=== PATIENT | female | born 2000 | race Caucasian/White ===

== ENCOUNTER → 2018-05-26 09:48 | Outpatient (CLI) | payer OTHER, SELFPAY | PROVIDERS: Family Provider Family Medicine; PCP Family Medicine; Visit Provider Physician Assistant | DX: L03.012 Cellulitis of left finger (principal) | CPT/HCPCS: 87070; 87077; 87147; 87186; 87205 ==

== ENCOUNTER 2020-01-30 20:48 | Emergency (ER) | payer OTHER, SELFPAY ==
[2020-01-30 21:00] VITALS: BP 128/76; PULSE 106; RESP 15; TEMP 36.7; O2SAT 97; BMI 20.1
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
[2020-01-30] MEDS: BACITRACIN OINT 0.9 GM PCKT 1 APPLIC TOP (22:41)
[2020-01-30 22:46] VITALS: BP 114/72; PULSE 103; RESP 14; O2SAT 99
== END 2020-01-30 22:48 | disposition home or self-care (01) ==
PROVIDERS: Emergency Provider Emergency Medicine; Family Provider Family Medicine; PCP Family Medicine
DX: S60.511A Abrasion of right hand, initial encounter (principal); T23.261A Burn of second degree of back of right hand, initial encounter; V89.2XXA Person injured in unspecified motor-vehicle accident, traffic, initial encounter
CPT/HCPCS: 73130; 99282; 99283

== ENCOUNTER → 2020-04-21 11:38 | Outpatient (CLI) | payer OTHER, MEDICAID, SELFPAY ==
[2020-04-21 12:10] LABS: COVID19 -Nasal RAPID Negative (Negative)
== END ==
PROVIDERS: Family Provider Family Medicine; PCP Family Medicine; Visit Provider Family Medicine
DX: Z11.59 Encounter for screening for other viral diseases (principal); R05 Cough; R09.81 Nasal congestion; R09.89 Other specified symptoms and signs involving the circulatory and respiratory systems
CPT/HCPCS: 87635

== ENCOUNTER → 2020-09-24 16:50 | Outpatient (CLI) | payer OTHER, MEDICAID, SELFPAY ==
[2020-09-24] MEDS: COVID-19 VACC #1, MRNA(MOD) 100 MCG/0.5 ML VIAL IM (16:58)
== END ==
PROVIDERS: Family Provider Family Medicine; PCP Family Medicine; Visit Provider Internal Medicine
DX: Z23 Encounter for immunization (principal)
CPT/HCPCS: 0011A; 91301

== ENCOUNTER → 2020-10-22 12:38 | Outpatient (CLI) | payer OTHER, MEDICAID, SELFPAY ==
[2020-10-22] MEDS: COVID-19 VACC #2, MRNA(MOD) 100 MCG/0.5 ML VIAL IM (12:46)
--- NOTE | 2020-10-22 13:14 | PC.NURSE ---
pt reported feeling faint post injection; pale, diaphoretic, assisted to reclining chair, bp 87/40; give cool coth to forehead, feeling better, bp 95/62 post 20 min. minimal food intake today. given juice and crackers. d/c ambuatory post 30 min
== END ==
PROVIDERS: Family Provider Family Medicine; PCP Family Medicine; Visit Provider Internal Medicine
DX: Z23 Encounter for immunization (principal)
CPT/HCPCS: 0012A; 91301

== ENCOUNTER → 2021-11-03 16:52 | Outpatient (CLI) | payer OTHER, MEDICAID, SELFPAY ==
[2021-11-03 17:57] LABS: Appearance Urine UA CLEAR; Bilirubin Urine UA NEGATIVE (NEGATIVE); Color Urine UA YELLOW; Glucose Urine UA NEGATIVE (Negative); Ketones Urine UA NEGATIVE (NEGATIVE); Leukocyte Esterase Urine UA NEGATIVE (NEGATIVE); Nitrite Urine UA NEGATIVE (Negative); Occult Blood Urine UA NEGATIVE (Negative); Protein Urine UA NEGATIVE (Negative); Specific Gravity Urine UA <=1.005 (1.000-1.035); Urobilinogen Urine UA 0.2 E.U./dL (0.2)
[2021-11-03 18:04] LABS: pH Urine UA 6.5 (4.5-8.0)
[2021-11-03 18:06] LABS: Add Manual Diff / Slide Review NO; Basophils Absolute Auto 0 /uL (0-100); Basophils Percent Auto 0.3 % (0-2); Eosinophils Absolute Auto 100 /uL (0-450); Eosinophils Percent Auto 0.7 % (2-4); Hematocrit 29.2 % (36-46); Hemoglobin 10.4 g/dL (12.0-16.0); Lymphocytes Absolute Auto 2300 /uL (1100-4500); Lymphocytes Percent Auto 27.1 % (25-40); Mean Corpuscular HGB Conc 35.8 % (30-36); Mean Corpuscular Hemoglobin 33.3 PG (26-34); Mean Corpuscular Volume 92.9 fL (80-100); Monocytes Absolute Auto 600 /uL (0-900); Monocytes Percent Auto 6.6 % (3-14); Neutrophils Absolute Auto 5600 /uL (1500-7000); Neutrophils Percent Auto 65.3 % (50-75); Platelet Count 273 X10^3/uL (150-400); Red Blood Cell Count 3.14 X10^6/uL (4.0-5.2); White Blood Cell Count 8.6 X10^3/uL (4.5-11.0)
[2021-11-04 07:39] LABS: Varicella IgG Antibody <135 index (Immune >165)
[2021-11-04 08:24] LABS: RPR Screen Non Reactive (Non Reactive)
[2021-11-04 16:16] LABS: Hepatitis B Surface Antigen NEGATIVE s/c (NEGATIVE); Rubella Antibody IgG 22.5 IU/mL (>15)
[2021-11-04 16:39] LABS: HIV 1 & 2 Ab/Ag 4th Gen Combo NEGATIVE (NEGATIVE); Hep C Virus Ab w/Reflex Quant NEGATIVE s/c (NEGATIVE)
== END ==
PROVIDERS: Family Provider Family Medicine; PCP Family Medicine; Referring Provider Obstetrics & Gynecology; Visit Provider Obstetrics & Gynecology
DX: Z34.82 Encounter for supervision of other normal pregnancy, second trimester (principal); Z3A.17 17 weeks gestation of pregnancy
CPT/HCPCS: 36415; 80055; 81003; 86787; 86803; 86850; 86900; 86901; 87086; 87389

== ENCOUNTER → 2021-11-15 11:00 | Outpatient (CLI) | payer OTHER, MEDICAID, SELFPAY ==
[2021-11-17 20:06] LABS: AFP, Serum 69.1 ng/mL (.); Estriol, Free 1.03 ng/mL (.); Inhibin A, Dimeric 218.15 pg/mL (.); Inhibin A, MoM 1.16 (.); Maternal Ethnicity Caucasian (.); Maternal Weight 121 lbs (.); Number of Fetuses No (.); OSBR Risk 1 IN 8106 (.); Results Report (.); Test Results *Screen Negative* (.); hCG, MoM 0.64 (.); hCG, Serum 20316 mIU/mL (.)
== END ==
PROVIDERS: Family Provider Family Medicine; PCP Family Medicine; Referring Provider Obstetrics & Gynecology; Visit Provider Obstetrics & Gynecology
DX: Z34.80 Encounter for supervision of other normal pregnancy, unspecified trimester (principal); Z3A.19 19 weeks gestation of pregnancy
CPT/HCPCS: 36415; 82105; 82677; 84702; 86336

== ENCOUNTER → 2021-12-02 12:30 | Outpatient (CLI) | payer OTHER, MEDICAID, SELFPAY | PROVIDERS: Family Provider Family Medicine; PCP Family Medicine; Referring Provider Obstetrics & Gynecology; Visit Provider Obstetrics & Gynecology | DX: Z34.82 Encounter for supervision of other normal pregnancy, second trimester (principal); Z3A.20 20 weeks gestation of pregnancy ==

== ENCOUNTER → 2021-12-07 12:58 | Outpatient (CLI) | payer OTHER, MEDICAID, SELFPAY ==
--- NOTE | 2021-12-07 12:59 | DI.US.S_ITS ---
PROCEDURE: US OB >= 14 WEEKS FETUS INDICATIONS: ANATOMY SCAN OUTSIDE/PRIOR DATING DATA: Last menstrual period (LMP): Not available. LMP-based estimated date of delivery (EMILY): Not available. First dating scan (date and location): 01/[address] Kovacs' office. Estimated date of delivery (EMILY) from first dating scan: 04/07/2022. TECHNIQUE: Real-time scanning was performed of the fetus, with image documentation and biometric measurements. Endovaginal scanning: Not performed. COMPARISON: [facility], OB <= 14 WEEKS FETUS, 09/10/2021, 16:49. [facility], OB >= 14 WEEKS FETUS, 11/15/2021, 10:51. FINDINGS: General: A single living intrauterine gestation is present. Presentation: Vertex. Placenta: Placental position is anterior , without previa. Amniotic fluid index: 12.6 cm, normal range is 5-24 cm. Single deepest vertical pocket is 3.7 cm. heart rate: 145 beats per minute. Maternal cervical canal: 3.8 cm long. Normal lower limit is 2.5 cm. biometrics: Biparietal diameter: 21 weeks 5 days Head circumference: 22 weeks 0 day Abdominal circumference: 22 weeks 4 days Femur length: 22 weeks 2 days Clinically estimated gestational age: 22 weeks 5 days Composite gestational age from present scan: 22 weeks 1 day Estimated weight and percentile: 499 g; 27% Anatomic survey: Neuro: Ventricles are non-dilated at less than 10 mm. Cisterna magna is normal at 3-11 mm. Cerebellum is normal in size and morphology. Nuchal skin fold: Normal at less than 6 mm between 14-21 weeks gestational age. Face: Nose and lips, facial profile are normal. Spine: No evidence for spina bifida. Heart: 4-chambered heart is present, with normal ventricular outflow tracts. Diaphragm: Diaphragm is intact. Stomach: Left-sided stomach is present. Kidneys: No hydronephrosis. Normal is less than 5 mm in 2nd trimester, less than 7 mm in 3rd trimester. Cord: 3-vessel cord has orthotopic insertion. Bladder: Normal in size. Extremities: All 4 extremities identified. IMPRESSION: 1. A single living intrauterine gestation with interval growth within normal limits. 2. Normal anatomic survey. We strive to produce accurate, complete, and clear reports of imaging services. To assist us in improving patient care, this report was composed using standard report templates and voice recognition software. Therefore, it may contain abnormal punctuation, insertions and/or omissions. Occasional wrong-word or sound-alike substitutions may occur. Though we review the report and make efforts to correct it, we do recommend that the report be read carefully in proper context to recognize any text inaccuracies. Dictated by: Willis Norwood M.D. on 12/07/2021 at 17:18 Approved by: Willis Norwood M.D. on 12/08/2021 at 11:18
== END ==
PROVIDERS: Family Provider Family Medicine; PCP Family Medicine; Referring Provider Obstetrics & Gynecology; Visit Provider Obstetrics & Gynecology
DX: Z34.82 Encounter for supervision of other normal pregnancy, second trimester (principal); Z3A.20 20 weeks gestation of pregnancy
CPT/HCPCS: 76811

== ENCOUNTER → 2022-01-28 11:10 | Outpatient (CLI) | payer OTHER, MEDICAID, SELFPAY ==
[2022-01-28 13:29] LABS: Hematocrit 29.7 % (36-46); Hemoglobin 10.6 g/dL (12.0-16.0)
[2022-01-28 14:14] LABS: GTT (PREG) 1 Hour PP 50gm Dose 102 mg/dL (76-139)
== END ==
PROVIDERS: Family Provider Family Medicine; PCP Family Medicine; Referring Provider Obstetrics & Gynecology; Visit Provider Obstetrics & Gynecology
DX: Z34.82 Encounter for supervision of other normal pregnancy, second trimester (principal); Z3A.27 27 weeks gestation of pregnancy
CPT/HCPCS: 36415; 82950; 85014; 85018

== ENCOUNTER → 2022-03-08 15:44 | Outpatient (CLI) | payer OTHER, MEDICAID, SELFPAY ==
--- NOTE | 2022-03-08 15:45 | DI.US.S_ITS ---
PROCEDURE: US OB LIMITED INDICATIONS: Growth ultrasound size less than dates OUTSIDE/PRIOR DATING DATA: Last menstrual period (LMP): Not available. LMP-based estimated date of delivery (EMILY): Not available. First dating scan (date and location): 09/10/[address] Kovacs. Estimated date of delivery (EMILY) from first dating scan: 04/07/2022. TECHNIQUE: Real-time scanning was performed of the fetus, with image documentation and biometric measurements. Biophysical profile was also obtained. Endovaginal scanning: Not performed COMPARISON: [facility], US OB >= 14 WEEKS FETUS, 12/07/2021, 14:04. [facility] US OB >= 14 WEEKS FETUS, 11/15/2021, 10:51. [facility], OB <= 14 WEEKS FETUS, 09/10/2021, 16:49. FINDINGS: General: A single living intrauterine gestation is present. Presentation: Cephalic. Placenta: Placental position is anterior , without previa. Amniotic fluid index: 11.6 cm, normal range is 5-24 cm; largest pocket 4.3 cm. heart rate: 144 beats per minute. Maternal cervical canal: Not visualized. biometrics: Biparietal diameter: 34 weeks 5 days Head circumference: 34 weeks 4 days Abdominal circumference: 32 weeks 4 days Femur length: 33 weeks 5 days Clinically estimated gestational age: 35 weeks 5 days Composite gestational age from present scan: 33 weeks 6 days Estimated weight and percentile: 2161 g; 5% Measurement variability for biometric dating: +/- 7 days from 14 weeks to 15 weeks 6 days gestation, +/- 10 days from 16 weeks to 21 weeks 6 days gestation, +/- 2 weeks from 22 weeks to 27 weeks 6 days gestation, +/- 3 weeks for 28 weeks gestation or later. weight reference: 4500 g or EFW >90/95% is considered macrosomia or large for gestational age. EFW <10% is small for gestational age. EFW 5% or less is considered intra-uterine growth restriction.>> Umbilical artery Doppler: S/D ratio 2.0-2.3 IMPRESSION: 1. A single living intrauterine gestation redemonstrated. The estimated weight is at the 5th percentile, concerning for intrauterine growth restriction. Recommend clinical follow-up and imaging follow-up if clinically indicated. 2. Normal cord Doppler with preserved diastolic flow. We strive to produce accurate, complete, and clear reports of imaging services. To assist us in improving patient care, this report was composed using standard report templates and voice recognition software. Therefore, it may contain abnormal punctuation, insertions and/or omissions. Occasional wrong-word or sound-alike substitutions may occur. Though we review the report and make efforts to correct it, we do recommend that the report be read carefully in proper context to recognize any text inaccuracies. Dictated by: Willis Norwood M.D. on 03/08/2022 at 16:38 Approved by: Willis Norwood M.D. on 03/08/2022 at 16:45
== END ==
PROVIDERS: Family Provider Family Medicine; PCP Family Medicine; Referring Provider Physician Assistant Medical; Visit Provider Physician Assistant Medical
DX: Z36.4 Encounter for antenatal screening for fetal growth retardation (principal); Z3A.33 33 weeks gestation of pregnancy
CPT/HCPCS: 76815; 76820

== ENCOUNTER 2022-03-10 12:53 | Outpatient (CLI) | payer OTHER, MEDICAID, SELFPAY ==
--- NOTE | 2022-03-10 13:00 | DI.US.S_ITS ---
PROCEDURE: US OB BIOPHYSICAL PROFILE INDICATIONS: INTRAUTERINE GROWTH RESTRICTION OUTSIDE/PRIOR DATING DATA: Last menstrual period (LMP): Unknown. LMP-based estimated date of delivery (EMILY): Unknown. First dating scan (date and location): 09/10/2021, physician office. Estimated date of delivery (EMILY) from first dating scan: 04/07/2022. The calculations are made using the ultrasound EMILY of 04/07/2022. TECHNIQUE: Real-time scanning was performed of the fetus for biophysical profile, with image documentation. Color and pulse Doppler interrogation was also performed of the umbilical artery near its insertion into the placenta. Endovaginal scanning: Not performed COMPARISON: None. FINDINGS: General: A single living intrauterine gestation is present. Presentation: Cephalic. Placenta: Placental position is anterior , without previa. Amniotic fluid index: 8.5 cm, normal range is 5-24 cm. Single deepest vertical pocket is 3.1 cm. heart rate: 163 beats per minute. Maternal cervical canal: Not seen secondary to late stage of . Clinically estimated gestational age: 36 weeks 0 days Estimated gestational age from initial scan: 36 weeks 0 days. Biophysical profile: Tone: 2 points. Movement: 2 points. Respiration: 2 points. Largest pocket of fluid: 2 points. Umbilical artery Doppler: 2.6, 2.1, 2.4 IMPRESSION: 1. Normal ultrasound biophysical profile, 01/10 2. Normal cord Dopplers. We strive to produce accurate, complete, and clear reports of imaging services. To assist us in improving patient care, this report was composed using standard report templates and voice recognition software. Therefore, it may contain abnormal punctuation, insertions and/or omissions. Occasional wrong-word or sound-alike substitutions may occur. Though we review the report and make efforts to correct it, we do recommend that the report be read carefully in proper context to recognize any text inaccuracies. Dictated by: Aly Simms M.D. on 03/10/2022 at 16:20 Approved by: Aly Simms M.D. on 03/10/2022 at 16:22
--- NOTE | 2022-03-10 13:23 | PM.OBTRLD ---
Visit Information Visit Information Date of evaluation: 03/10/22 Primary OB Provider: Mendez Duffy On-call OB Provider: Vianney Palma Reason for Evaluation: Yes non-stress test non-stress test reason: other (IUGR) Vital Signs Vital Signs: Blood pressure 115/64, pulse 106, temperature 36.6? [facility] Medical History Acute bronchitis Allergies Anxiety Asthma GERD (gastroesophageal reflux disease) Headache History of seasonal allergies Surgical History Anesthesia Status post tonsillectomy and adenoidectomy Family History Father Mental health problem Mother Mental health problem Social History marital status: unmarried,living together number of children: 1 household members: significant other and children (Has Earl' child with them periodically) lives independently: Yes housing: house ([facility]) pets and animals: Yes (dog, cat, aware of toxoplasmosis) education level: other (dropped out) occupational status: employed current occupational exposures/hazards: No special jonna needs: No seatbelt use: always water heater temp set < 120 deg: Yes working smoke detector in home: Yes fire extinguisher in home: Yes carbon monox detector in home: Yes firearms in home: No do you feel safe at home: Yes Smoking Status: Former smoker second hand exposure: No alcohol intake: former substance use type: does not use during the past year weight has: other (fluctuates by 10 pounds all the time) well-balanced diet: about half the time daily servings fruits/ve-4 caffeine: Yes (200mg a day) Type(s) of exercise: walking Evaluation Evaluation Baseline heart rate: 145 Variability: Moderate (11-25) monitor accelerations: Present Monitor Decelerations: Absent Category of Tracing: Reactive Status: Category l Diagnosis, Plan/Disposition Final Diagnosis (1) 35 weeks gestation of : Status: Acute (2) Intrauterine growth restriction (IUGR) affecting care of mother, third trimester, single gestation: Status: Acute Plan/Disposition Plan: Patient is going to ultrasound for biophysical profile, continue routine OB care OB Disposition: home
== END 2022-03-10 13:30 | disposition home or self-care (01) ==
LOC: LABOR 13:16 → OB 03-15 14:14
PROVIDERS: Family Provider Family Medicine; PCP Family Medicine; Referring Provider Obstetrics & Gynecology; Visit Provider Obstetrics & Gynecology
DX: O36.5930 Maternal care for other known or suspected poor fetal growth, third trimester, not applicable or unspecified (principal); Z3A.35 35 weeks gestation of pregnancy
CPT/HCPCS: 59025; 76819; 76820; G0378; G0379

== ENCOUNTER → 2022-03-15 15:07 | Outpatient (CLI) | payer OTHER, MEDICAID, SELFPAY ==
--- NOTE | 2022-03-15 15:54 | P.TNLD_ITS ---
Visit Information Visit Information Date of evaluation: 03/15/22 Primary OB Provider: Mendez Duffy On-call OB Provider: Vianney Pamla Reason for Evaluation: Yes non-stress test non-stress test reason: other (SGA) Vital Signs Vital Signs: Blood pressure 104/62, pulse of 96, temperature 36.1? [facility] Medical History Acute bronchitis Allergies Anxiety Asthma GERD (gastroesophageal reflux disease) Headache History of seasonal allergies Surgical History Anesthesia Status post tonsillectomy and adenoidectomy Family History Father Mental health problem Mother Mental health problem Social History marital status: unmarried,living together number of children: 1 household members: significant other and children (Has Earl' child with them periodically) lives independently: Yes housing: house ([facility]) pets and animals: Yes (dog, cat, aware of toxoplasmosis) education level: other (dropped out) occupational status: employed current occupational exposures/hazards: No special jonna needs: No seatbelt use: always water heater temp set < 120 deg: Yes working smoke detector in home: Yes fire extinguisher in home: Yes carbon monox detector in home: Yes firearms in home: No do you feel safe at home: Yes Smoking Status: Former smoker second hand exposure: No alcohol intake: former substance use type: does not use during the past year weight has: other (fluctuates by 10 pounds all the time) well-balanced diet: about half the time daily servings fruits/ve-4 caffeine: Yes (200mg a day) Type(s) of exercise: walking Evaluation Evaluation Baseline heart rate: 130 Variability: Moderate (11-25) monitor accelerations: Present Monitor Decelerations: Absent Category of Tracing: Reactive Status: Category l Diagnosis, Plan/Disposition Final Diagnosis (1) Intrauterine growth restriction (IUGR) affecting care of mother, third trimester, single gestation: Status: Acute (2) 36 weeks gestation of : Status: Acute Plan/Disposition Plan: Reactive nonstress test with office biophysical profile normal. Patient will schedule twice weekly nonstress tests and weekly visits until her planned induction at 38 weeks OB Disposition: home
== END ==
PROVIDERS: Family Provider Family Medicine; PCP Family Medicine; Referring Provider Specialist; Visit Provider Specialist
DX: O36.5930 Maternal care for other known or suspected poor fetal growth, third trimester, not applicable or unspecified (principal)
CPT/HCPCS: 59025; 87653; G0378

== ENCOUNTER 2022-03-18 13:23 | Outpatient (CLI) | payer OTHER, MEDICAID, SELFPAY ==
--- NOTE | 2022-03-18 14:19 | P.TNLD_ITS ---
Visit Information Visit Information Date of evaluation: 03/18/22 Primary OB Provider: Mendez Duffy On-call OB Provider: Vianney Palma Reason for Evaluation: Yes non-stress test non-stress test reason: other (SGA) Vital Signs Vital Signs: Blood pressure 103/66, pulse 94, temperature 36.3? [facility] Medical History Acute bronchitis Allergies Anxiety Asthma GERD (gastroesophageal reflux disease) Headache History of seasonal allergies Surgical History Anesthesia Status post tonsillectomy and adenoidectomy Family History Father Mental health problem Mother Mental health problem Social History marital status: unmarried,living together number of children: 1 household members: significant other and children (Has Earl' child with them periodically) lives independently: Yes housing: house ([facility]) pets and animals: Yes (dog, cat, aware of toxoplasmosis) education level: other (dropped out) occupational status: employed current occupational exposures/hazards: No special jonna needs: No seatbelt use: always water heater temp set < 120 deg: Yes working smoke detector in home: Yes fire extinguisher in home: Yes carbon monox detector in home: Yes firearms in home: No do you feel safe at home: Yes Smoking Status: Former smoker second hand exposure: No alcohol intake: former substance use type: does not use during the past year weight has: other (fluctuates by 10 pounds all the time) well-balanced diet: about half the time daily servings fruits/ve-4 caffeine: Yes (200mg a day) Type(s) of exercise: walking Evaluation Evaluation Baseline heart rate: 125 Variability: Moderate (11-25) monitor accelerations: Present Monitor Decelerations: Absent Contraction Frequency (minutes): 0 Category of Tracing: Reactive Status: Category l Comments: Ultrasound RADHIKA 14, good movement, tone, breathing seen Diagnosis, Plan/Disposition Final Diagnosis (1) 36 weeks gestation of : Status: Acute (2) Intrauterine growth restriction (IUGR) affecting care of mother, third trimester, single gestation: Status: Acute Plan/Disposition Plan: Patient has an appointment in 3 days in the office as well as repeat biophysical profile and NST. Cervix will be examined for evaluation for induction on April 22 OB Disposition: home
== END 2022-03-18 14:18 | disposition home or self-care (01) ==
LOC: OB 03-22 17:16
PROVIDERS: Family Provider Family Medicine; PCP Family Medicine; Referring Provider Obstetrics & Gynecology; Visit Provider Obstetrics & Gynecology
DX: O36.5930 Maternal care for other known or suspected poor fetal growth, third trimester, not applicable or unspecified (principal); Z3A.36 36 weeks gestation of pregnancy
CPT/HCPCS: 59025; 76815; G0378; G0379

== ENCOUNTER → 2022-03-21 15:02 | Outpatient (CLI) | payer OTHER, MEDICAID, SELFPAY ==
[2022-03-21 21:37] LABS: Urine N gonorrhoeae NOT DETECTED
[2022-03-21 21:39] LABS: Urine Chlamydia NOT DETECTED
== END ==
PROVIDERS: Family Provider Family Medicine; PCP Family Medicine; Visit Provider Obstetrics & Gynecology
DX: Z34.83 Encounter for supervision of other normal pregnancy, third trimester (principal); Z3A.37 37 weeks gestation of pregnancy
CPT/HCPCS: 87491; 87591

== ENCOUNTER 2022-03-21 15:46 | Outpatient (CLI) | payer OTHER, MEDICAID, SELFPAY ==
--- NOTE | 2022-03-21 17:15 | PM.OBTRLD ---
Visit Information Visit Information Date of evaluation: 03/21/22 Primary OB Provider: Mendez Duffy On-call OB Provider: Vianney Palma Reason for Evaluation: Yes non-stress test non-stress test reason: other (SGA) PFSH Medical History Acute bronchitis Allergies Anxiety Asthma GERD (gastroesophageal reflux disease) Headache History of seasonal allergies Surgical History Anesthesia Status post tonsillectomy and adenoidectomy Family History Father Mental health problem Mother Mental health problem Social History marital status: unmarried,living together number of children: 1 household members: significant other and children (Has Earl' child with them periodically) lives independently: Yes housing: house ([facility]) pets and animals: Yes (dog, cat, aware of toxoplasmosis) education level: other (dropped out) occupational status: employed current occupational exposures/hazards: No special jonna needs: No seatbelt use: always water heater temp set < 120 deg: Yes working smoke detector in home: Yes fire extinguisher in home: Yes carbon monox detector in home: Yes firearms in home: No do you feel safe at home: Yes Smoking Status: Former smoker second hand exposure: No alcohol intake: former substance use type: does not use during the past year weight has: other (fluctuates by 10 pounds all the time) well-balanced diet: about half the time daily servings fruits/ve-4 caffeine: Yes (200mg a day) Type(s) of exercise: walking Evaluation Evaluation Baseline heart rate: 140 Variability: Moderate (11-25) monitor accelerations: Present Monitor Decelerations: Absent Contraction Frequency (minutes): 0 Comments: Ultrasound good movement, tone, breathing, reactive nonstress test Diagnosis, Plan/Disposition Final Diagnosis (1) 37 weeks gestation of : Status: Acute (2) Intrauterine growth restriction (IUGR) affecting care of mother, third trimester, single gestation: Status: Acute Plan/Disposition Plan: Reassuring biophysical profile. Patient is scheduled for induction on the OB Disposition: home
== END 2022-03-21 17:15 | disposition home or self-care (01) ==
LOC: OB 03-24 11:26
PROVIDERS: Family Provider Family Medicine; PCP Family Medicine; Referring Provider Specialist; Visit Provider Specialist
DX: O36.5930 Maternal care for other known or suspected poor fetal growth, third trimester, not applicable or unspecified (principal); Z3A.37 37 weeks gestation of pregnancy; Z34.83 Encounter for supervision of other normal pregnancy, third trimester
CPT/HCPCS: 59025; 76815; 87491; 87591; G0378; G0379

== ENCOUNTER 2022-03-24 17:53 | Inpatient (IN) | payer OTHER, MEDICAID, SELFPAY ==
[2022-03-24 18:58] LABS: Add Manual Diff / Slide Review NO; Basophils Absolute Auto 0 /uL (0-100); Basophils Percent Auto 0.2 % (0-2); Eosinophils Absolute Auto 100 /uL (0-450); Eosinophils Percent Auto 1.1 % (2-4); Hematocrit 28.4 % (36-46); Hemoglobin 9.7 g/dL (12.0-16.0); Lymphocytes Absolute Auto 2300 /uL (1100-4500); Lymphocytes Percent Auto 23.2 % (25-40); Mean Corpuscular HGB Conc 34.3 % (30-36); Mean Corpuscular Hemoglobin 32.4 PG (26-34); Mean Corpuscular Volume 94.3 fL (80-100); Monocytes Absolute Auto 800 /uL (0-900); Monocytes Percent Auto 7.7 % (3-14); Neutrophils Absolute Auto 6600 /uL (1500-7000); Neutrophils Percent Auto 67.8 % (50-75); Platelet Count 275 X10^3/uL (150-400); Red Blood Cell Count 3.01 X10^6/uL (4.0-5.2); Red Cell Distribution Width 13.9 % (11.6-14.8); White Blood Cell Count 9.8 X10^3/uL (4.5-11.0)
[2022-03-24] MEDS: LACTATED RINGERS 1,000 ML 100 ML IV (19:10)
[2022-03-24] MEDS: DINOPROSTONE VAG (CERVIDIL) 10 MG VAG (19:15)
[2022-03-25] MEDS: OXYTOCIN PREMIX 30 UNIT/500 ML PLAST..BAG IV (08:41)
[2022-03-25] MEDS: LACTATED RINGERS 1,000 ML 100 ML IV (08:42)
--- NOTE | 2022-03-25 08:48 | P.HPOB_ITS ---
OB HPI Date/Time Date of admission: 03/24/22 Date Patient Seen: 03/25/22 Time Patient Seen: 10:35 History of Present Condition Chief complaint: observation of labor EMILY Calculator Estimated Delivery Date Method Current WG Current Estimate 04/08/22 LMP (Certain) 38w 0d Other Estimates 04/07/22 Ultrasound #1 38w 1d Estimated Gestational Age (weeks): 38 : 4 Para: 1 Narrative: Patient is a 21-year-old 4 para 1 with intrauterine growth restriction. She received Cervidil overnight. She is comfortable. Desires an epidural for pain management. care: initiated at week # (10), number of visits (8) and pounds weight gain (34) Dating criteria OB: LMP confirmed by 1st trimester US Ultrasounds: normal 1st trimester US and normal mid trimester US Obstetrical complications: growth restriction Medical complications OB: none Indications Indication for induction OB: intra-uterine growth restriction Preadmission Labs Last OB Lab Results: Blood Type O Positive 03/24/22 18:30 Antibody Screen Negative 03/24/22 18:30 Hematocrit 28.4 % (36-46) L 03/24/22 18:30 Hemoglobin 9.7 g/dL (12.0-16.0) L 03/24/22 18:30 Hepatitis B Surface Antigen Negative s/c (NEGATIVE) 11/03/21 16 :57 Hepatitis C Antibody Negative s/c (NEGATIVE) 11/03/21 16:57 Rubella Antibody 22.5 IU/mL (>15) 11/03/21 16:57 Varicella-Zoster IgG Antibody <135 index (Immune >165) L 16:57 Glucose 1 Hour 102 mg/dL (76-139) 01/28/22 11:29 Group B Streptococcus (PCR) Neg for grp b strep 03/15/22 18:42 -: Chlamydia screen: negative, Gonorrhea screen: negative and Urine: unknown -: PAP smear: Normal Genetic Screens: Quad screen: Normal External Labs -: Urine: unknown Prior (ies) Past Pregnancies Del. Date GA/Weeks Labor Lgth Wt Sex Route Outcome Anesthesia Place Delv Breastfeed Preg Comp Name 02/06/17 37 12 5 lb 5 oz Female vaginal live - epidura l IH 1 yr other [place] 07/12/17 10 elective 04/11/18 6 spontaneous Delivery Date: 02/06/17 Last Updated by: Lary Langley R.N. Leaking membranes at 37 wks, induced Delivery Date: 07/12/17 Last Updated by: Lary Langley R.N. D & C Delivery Date: 04/11/18 Last Updated by: Lary Langley R.N. Passed products on her own Evaluation Evaluation Baseline heart rate: 145 Variability: Moderate (11-25) monitor accelerations: Present Monitor Decelerations: Absent Uterine Contraction Intensity: Moderate Status: Category l Dilation (cm): 2 Effacement (%): 85 station: -1 Consistency: medium PFSH Medical History Acute bronchitis Allergies Anxiety Asthma GERD (gastroesophageal reflux disease) Headache History of seasonal allergies Surgical History Anesthesia Status post tonsillectomy and adenoidectomy Family History Father Mental health problem Mother Mental health problem Social History marital status: unmarried,living together number of children: 1 household members: significant other and children (Has Earl' child with them periodically) lives independently: Yes housing: house ([facility]) pets and animals: Yes (dog, cat, aware of toxoplasmosis) education level: other (dropped out) occupational status: employed current occupational exposures/hazards: No special jonna needs: No seatbelt use: always water heater temp set < 120 deg: Yes working smoke detector in home: Yes fire extinguisher in home: Yes carbon monox detector in home: Yes firearms in home: No do you feel safe at home: Yes Smoking Status: Never smoker second hand exposure: No alcohol intake: former substance use type: does not use during the past year weight has: other (fluctuates by 10 pounds all the time) well-balanced diet: about half the time daily servings fruits/ve-4 caffeine: Yes (200mg a day) Type(s) of exercise: walking Meds Home Medications and Allergies Home Medications Medication Instructions Recorded Confirmed Type albuterol sulfate 90 mcg/actuation 2 puff inhalation Q6H PRN 07/27/21 03/25/22 Rx aerosol inhaler (ProAir HFA) shortness of breath or wheezing #18 grams sertraline 50 mg tablet See Rx Instructions .Route 07/27/21 03/25/22 Rx .COMPLEX #90 tabs ferrous sulfate 325 mg (65 mg 325 mg PO DAILY anemia #30 tabs 02/04/22 03/25/22 Rx iron) tablet Allergies Allergy/AdvReac Type Severity Reaction Status Date / Time No Known Drug Allergies Allergy Verified 03/21/22 15:04 OB Exam Narrative Exam Narrative: Generally; No acute distress. Lungs: CTA bilaterally CV: RRR FH: 37 cm EFW: 6# Ext: No edema Objective Labs Result Diagrams: 03/24/22 18:30 Labs: Laboratory Results - last 24 hr 03/24/22 03/24/22 18:30 18:30 WBC 9.8 RBC 3.01 L Hgb 9.7 L Hct 28.4 L MCV 94.3 MCH 32.4 MCHC 34.3 RDW 13.9 Plt Count 275 Neut % (Auto) 67.8 Lymph % (Auto) 23.2 L [place] % (Auto) 7.7 Eos % (Auto) 1.1 L Baso % (Auto) 0.2 Neut # (Auto) 6600 Lymph # (Auto) 2300 [place] # (Auto) 800 Eos # (Auto) 100 Baso # (Auto) 0 Blood Type O Positive Antibody Screen Negative Assessment and Plan Assessment and Plan Assessment and Plan narrative: Assessment: 21-year-old 4 para 1 at 38 weeks gestation with intrauterine growth restriction Status post Cervidil overnight Plan: On Pitocin augmentation Artificial rupture membranes with small amount of clear amniotic fluid Epidural as necessary Expected management to spontaneous vaginal delivery Time Spent with Patient Total time spent with greater than 50% in coordination of care (as documented) at patient's floor/unit and/or counseling patient:: 15-24 minutes
[2022-03-25] MEDS: FENT 2MCG/ML BUPIV 0.125% EPI 200 MCG/100 ML PLAST..BAG 10 MCG EPIDURAL (13:40)
[2022-03-25] MEDS: ePHEDrine 50 MG/ML VIAL 10 MG IV (14:35)
--- NOTE | 2022-03-25 18:47 | PM.OBPRVD ---
Events: Other (Growth restriction) Labor & Delivery Delivery date: 03/25/22 Intrapartal Events: None Cervical ripening method: per Cervidil protocol Induction method: per pitocin protocol Delivery augmentation: rupture of membranes Delivery monitor: external FHT and external uterine Route of delivery: Episiotomy description: None L&D Laceration Description: None Quantitative Blood Loss: 50 Anesthesia Type: Epidural Complications: None Narrative: Patient complete and pushed with 2 contractions. At 6:22 p.m., a live female infant delivered spontaneously in the ELLIE presentation, over an intact perineum. No nuchal cord. The remainder of the body delivered without difficulty and was placed on mom's abdomen. The cord was double clamped and cut after it stopped pulsing. Pitocin was given in the IV fluids. Cord bloods were obtained. The placenta delivered intact with a three-vessel cord at 6:29 p.m.. EBL:50 cc. Apgars 9 at 1 minute and 9 at 5 minutes. Fundus massaged to firm. No lacerations. Epidural analgesia. . Mom and stable to recovery. Baby 1: gender: Female Presentation: vertex Position: Left Occiput Anterior Placenta delivery description: Spontaneous Cord Vessel Description: 3 Vessels and Clamped/Cut (after stopped pulsing) score (1 min): 9 score (5 min): 9 weight: 5 lb 5.7 oz Plan for aftercare: Routine care
[2022-03-25] MEDS: IBUPROFEN 600 MG TABLET PO (19:38)
[2022-03-25] MEDS: ACETAMINOPHEN 325 MG TABLET 650 MG PO (19:38)
[2022-03-26] MEDS: IBUPROFEN 600 MG TABLET PO ×4 (01:47→20:20)
[2022-03-26] MEDS: ACETAMINOPHEN 325 MG TABLET 650 MG PO ×4 (01:47→20:19)
[2022-03-26] MEDS: PRENATAL VIT,CALC/IRON/FOLIC 1 TABLET 1 TAB PO (10:45)
[2022-03-26] MEDS: SERTRALINE 50 MG TABLET PO (10:45)
[2022-03-26] MEDS: DOCUSATE 100 MG CAPSULE PO (10:45)
[2022-03-26 12:26] LABS: Hematocrit 33.3 % (36-46); Hemoglobin 11.1 g/dL (12.0-16.0)
--- NOTE | 2022-03-26 14:23 | PM.OBPN.1 ---
Subjective - OB Subjective Patient comments: other (Cramping with ) baby status: doing well and nursing well [place] feeding status: exclusively breast feeding Date Patient Seen: 03/26/22 Time Patient Seen: 14:24 Exam Narrative Exam Narrative: Generally: Patient walking around in room, no acute distress Fundus: Firm at U -2 Extremities: No edema, negative Homans Objective Labs Result Diagrams: 03/26/22 12:15 Labs: Laboratory Results - last 24 hr 03/26/22 12:15 Hgb 11.1 L Hct 33.3 L Assessment & Plan Plan day: 1 plan OB: routine care Comments: Will add oxycodone for pain Time Spent With Patient Time: Total time spent is greater than 50% in coordination of care (as documented) at patient's floor/unit and/or counseling patient: Time with patient: 15-24 minutes
[2022-03-26] MEDS: OXYCODONE IR 5 MG TABLET PO (19:56)
[2022-03-27] MEDS: OXYCODONE IR 5 MG TABLET PO ×2 (00:03→10:13)
[2022-03-27] MEDS: ACETAMINOPHEN 325 MG TABLET 650 MG PO ×2 (02:13→08:00)
[2022-03-27] MEDS: IBUPROFEN 600 MG TABLET PO ×2 (02:13→07:59)
[2022-03-27] MEDS: DOCUSATE 100 MG CAPSULE PO (08:00)
[2022-03-27] MEDS: SERTRALINE 50 MG TABLET PO (08:00)
[2022-03-27] MEDS: PRENATAL VIT,CALC/IRON/FOLIC 1 TABLET 1 TAB PO (08:00)
--- NOTE | 2022-03-27 11:18 | PM.OBDS.1 ---
Discharge Providers Provider Date of admission: 03/24/22 17:53 Discharge Date: 03/27/22 Primary care physician: Santiago Melendez MD Consults: 03/26/22 18:43 Consult to Controlled Area Checker Routine Comment: Discharge provider: Delmy Titus MD Summary Hospital Course Date Patient Seen: 03/27/22 Time Patient Seen: 11:18 Diagnoses: 38 weeks gestation growth restriction Induction of labor with Pitocin Spontaneous vaginal delivery Cervical ripening with Cervidil Hospital Course: Patient is a 21-year-old 4 para 2 who presented on March 24, 2022 for cervical ripening due to growth restriction. She received 1 dose of Cervidil. On the morning of March 25, 2022 she was started on Pitocin. Artificial rupture of membranes was performed. She received an epidural for pain management. She had a spontaneous vaginal delivery without complication. Her course was unremarkable. She is discharged home on day #2. She will follow-up in 6 weeks. Peripartum Data Infant Delivery Method: Natural Vaginal Laceration Description: None Episiotomy description: None Procedures: Cervidil cervical ripening Pitocin induction of labor Artificial rupture of membranes Spontaneous vaginal delivery complications: none 1: Gender: Female Disposition of : home Status at Discharge Cognitive/behavioral status at discharge: oriented Functional status at discharge: independent ambulation Overall status at discharge: patient is progressing back to baseline Time Spent with Patient Time attestation: Total time spent providing and/or coordinating discharge services: Time spent: Less than 30 minutes Objective Labs Result Diagrams: 03/26/22 12:15 Labs: Laboratory Results - last 24 hr 03/26/22 12:15 Hgb 11.1 L Hct 33.3 L Exam Narrative Exam Narrative: Generally: Patient is sitting up in bed, nursing infant, no acute distress Fundus: Firm at U -2 Extremities: Negative Homans, trace edema Discharge Plan Discharge Plan Patient Disposition: Home Provider Discharge Comment: Call with fever, chills, or bleeding vaginally more than a pad in an hour Ibuprofen 600 mg every 6 hours as needed for cramping Tylenol 650 mg every 6 hours as needed Discharge orders & Medications Prescriptions: New oxycodone 5 mg tablet 5 mg PO Q4H PRN (Reason: pain) Qty: 10 0RF Continued albuterol sulfate [ProAir HFA] 90 mcg/actuation HFA aerosol inhaler 2 puff inhalation Q6H PRN (Reason: shortness of breath or wheezing) Qty: 18 1RF sertraline 50 mg tablet See Rx Instructions .ROUTE .COMPLEX Qty: 90 3RF Hold Instructions: nauseated due to Dose Instruction: TAKE ONE TABLET BY MOUTH ONE TIME DAILY Rx Instructions: TAKE ONE TABLET BY MOUTH ONE TIME DAILY Discontinued ferrous sulfate 325 mg (65 mg iron) tablet 325 mg PO DAILY Qty: 30 6RF Rx Instructions: Take daily. Follow up/Referrals: Delmy Titus MD [Physician] - 6 Weeks (My office will call March 28, 2022 to schedule 6 week exam) Diet/Activity/Treatments Diet: Regular Activity: Nothing in the vagina for 6 weeks Skin/Wound/Dressing Care Report to your healthcare provider any signs of infection, such as:: chills, fever, increased pain and unusual drainage Visit Report/Discharge Packet Instructions: DI for Labor and Delivery, Vaginal , DI for Prescription Opioid Use Stand Alone Forms: Discharge: Care Discharge Data Primary Care Provider: Santiago Melendez Attending Provider: Delmy Titus
[2022-03-27 11:59] VITALS: BP 105/65; PULSE 85; RESP 16; TEMP 36.4
== END 2022-03-27 11:55 | disposition home or self-care (01) | DRG 560 ==
PROVIDERS: Specialist; Admitting Provider Obstetrics & Gynecology; Family Provider Family Medicine; PCP Family Medicine; Referring Provider Obstetrics & Gynecology; Visit Provider Obstetrics & Gynecology
DX: O36.5930 Maternal care for other known or suspected poor fetal growth, third trimester, not applicable or unspecified (principal); Z3A.38 38 weeks gestation of pregnancy; Z37.0 Single live birth; Z20.822 Contact with and (suspected) exposure to COVID-19
CPT/HCPCS: 36415; 59050; 59200; 59400; 59409; 85014; 85018; 85025; 86850; 86900; 86901; G0378; G0379; J2590

== ENCOUNTER 2022-07-20 05:53 | Emergency (ER) | payer OTHER, MEDICAID, SELFPAY ==
[2022-07-20 06:00] VITALS: BP 101/51; PULSE 92; RESP 20; TEMP 36.6; O2SAT 100; BMI 24.5
--- NOTE | 2022-07-20 06:24 | DI.US.S_ITS ---
PROCEDURE: US OB <= 14 WEEKS FETUS INDICATIONS: PAIN; UNCERTAIN DATES OUTSIDE/PRIOR DATING DATA: Last menstrual period (LMP): 06/29/2022 LMP-based estimated date of delivery (EMILY): 04/05/2023 First dating scan (date and location): 07/20/2022 Estimated date of delivery (EMILY) from first dating scan: 03/15/2023 TECHNIQUE: Real-time scanning was performed of the fetus and maternal pelvic organs, with image documentation. Endovaginal scanning was also performed to better visualize the fetus and maternal ovaries. COMPARISON: [facility], OB <= 14 WEEKS FETUS, 09/10/2021, 16:49. FINDINGS: Embryo: Single intrauterine gestational sac is seen with fetus and yolk sac seen. [place]-rump length measures 0.4 cm. Estimated gestational age is 6 weeks, 0 day. Heart rate: 108 beats per minute. Maternal organs: There is a right perigestational hemorrhage measures 2.1 x 0.4 x 1.2 cm in size. Left perigestational hemorrhage is also seen measures 1.3 x 0.7 x 0.7 cm in size. Ovaries are visualized and are within normal limits. Small corpus luteum is seen in right ovary. IMPRESSION: 1. Single live intrauterine gestation with fetus and yolk sac seen. heart rate is 108 beats per minute. Estimated gestational age based on current study is 6 weeks, 0 day. 2. Bilateral small subchorionic hemorrhage as above. Small corpus luteum in right ovary. We strive to produce accurate, complete, and clear reports of imaging services. To assist us in improving patient care, this report was composed using standard report templates and voice recognition software. Therefore, it may contain abnormal punctuation, insertions and/or omissions. Occasional wrong-word or sound-alike substitutions may occur. Though we review the report and make efforts to correct it, we do recommend that the report be read carefully in proper context to recognize any text inaccuracies. Dictated by: Bassam Hare M.D. on 07/20/2022 at 8:40 Approved by: Bassam Hare M.D. on 07/20/2022 at 8:44
--- NOTE | 2022-07-20 06:24 | ED.GENADULT ---
HPI - General Adult General Chief complaint: Urogenital-Female Stated complaint: Fainted, pain in vagina area after hearing a pop Time Seen by Provider: 07/20/22 05:55 Source: patient and family Mode of arrival: Ambulatory Limitations: no limitations History of Present Illness HPI narrative: Patient is a 21-year-old female. she has had 2 spontaneous vaginal deliveries. Last delivery was in March of 2022. He is currently not on control. Did have a menstrual cycle on the 29 of June. She states she is here because this morning she was having sexual intercourse with her partner. She states that she felt a ?pop? in her cervix area. She had some discomfort afterwards however she got up to go use the restroom. She states that the pain became worse. She passed out. She is had consistent pain since then. States that she is having uterine cramping. No vomiting. No vaginal bleeding. No urinary symptoms. No change in bowel habits. Related Data Previous Rx's Medication Instructions Recorded albuterol sulfate 90 mcg/actuation 2 puff inhalation Q6H PRN 07/27/21 aerosol inhaler (ProAir HFA) shortness of breath or wheezing #18 grams sertraline 50 mg tablet See Rx Instructions .Route 07/27/21 .COMPLEX #90 tabs oxycodone 5 mg tablet 5 mg PO Q4H PRN pain #10 tabs 03/27/22 Allergies Allergy/AdvReac Type Severity Reaction Status Date / Time No Known Drug Allergies Allergy Verified 03/21/22 15:04 Review of Systems Constitutional Constitutional: Reports system reviewed and no additional complaints, except as documented Gastrointestinal Gastrointestinal: Reports system reviewed and no additional complaints, except as documented Genitourinary Genitourinary: Reports system reviewed and no additional complaints, except as documented Integumentary/Breasts Skin/Breast: Reports system reviewed and no additional complaints, except as documented Patient History Medical History Acute bronchitis Allergies Anxiety Asthma GERD (gastroesophageal reflux disease) Headache History of seasonal allergies Surgical History Anesthesia Status post tonsillectomy and adenoidectomy Family History Father Mental health problem Mother Mental health problem Social History marital status: unmarried,living together number of children: 1 household members: significant other and children (Has Earl' child with them periodically) lives independently: Yes housing: house ([facility]) pets and animals: Yes (dog, cat, aware of toxoplasmosis) education level: other (dropped out) occupational status: employed current occupational exposures/hazards: No special jonna needs: No seatbelt use: always water heater temp set < 120 deg: Yes working smoke detector in home: Yes fire extinguisher in home: Yes carbon monox detector in home: Yes firearms in home: No do you feel safe at home: Yes Smoking Status: Never smoker second hand exposure: No alcohol intake: former substance use type: does not use during the past year weight has: other (fluctuates by 10 pounds all the time) well-balanced diet: about half the time daily servings fruits/ve-4 caffeine: Yes (200mg a day) Type(s) of exercise: walking Smoking Status: Never smoker tobacco type: vaping alcohol intake frequency: holidays/special occasions only Substance Use Type: does not use Exam Initial Vital Signs Initial Vital Signs: Vital Signs Temperature 97.9 F 07/20/22 06:00 Pulse Rate 92 H 07/20/22 06:00 Respiratory Rate 20 07/20/22 06:00 Blood Pressure 101/51 L 07/20/22 06:00 Pulse Oximetry 100 07/20/22 06:00 Oxygen Delivery Method 07/20/22 06:00 Const General: cooperative, comfortable and No ill appearing [facility] Head: normal to inspection and normocephalic Resp Effort & Inspection: normal respiratory effort Auscultation: clear to auscultation bilaterally Cardio Rate: regular rate Rhythm: regular rhythm GI Inspection: normal to inspection Palpation: tender (Lower abdomen) External Female Exam: normal external appearance Speculum Exam - Vagina: normal appearance of the vagina, no lacerations and No vaginal bleeding Speculum Exam - Cervix: normal appearance of the cervix, No cervical os open and tender Bimanual Exam- Vagina & Uterus: tender Bimanual Exam- Adnexa, other: normal adnexae, non-tender and no masses noted OB/External & Speculum: No cervical os open and No vaginal bleeding Skin General: no rashes or lesions noted Neuro General: patient alert, patient awake and moves all extremities Extrem General: normal to inspection and capillary refill normal Course Orders Ordered: ED Orders 07/20/22 06:16 Complete Blood Count AUTO DIFF Stat 07/20/22 06:17 Basic Metabolic Panel Stat HCG Quantitative /Beta subunit Stat 07/20/22 06:24 OB <= 14 weeks fetus Stat Vital Signs Vital signs: Vital Signs - 8 hr 07/20/22 06:00 Temperature 97.9 F Pulse Rate 92 H Respiratory Rate 20 Blood Pressure 101/51 L Pulse Oximetry 100 Oxygen Delivery Method Room Air Medical Decision Making Medical Records Medical records reviewed: Yes I reviewed the patient's medical records. Lab Data Lab results reviewed: Yes I reviewed the patient's lab results. 07/20/22 06:29 07/20/22 06:29 Labs: Lab Results 07/20/22 07/20/22 Range/Units 06:29 06:29 WBC 8.4 (4.5-11.0) X10^3/uL RBC 3.66 L (4.0-5.2) X10^6/uL Hgb 11.5 L (12.0-16.0) g/dL Hct 32.7 L (36-46) % MCV 89.3 (80-100) fL MCH 31.4 (26-34) PG MCHC 35.2 (30-36) % RDW 12.9 (11.6-14.8) % Plt Count 283 (150-400) X10^3/uL Neut % (Auto) 67.0 (50-75) % Lymph % (Auto) 23.9 L (25-40) % [place] % (Auto) 7.3 (3-14) % Eos % (Auto) 1.4 L (2-4) % Baso % (Auto) 0.4 (0-2) % Neut # (Auto) 5600 (4370-8063) /uL Lymph # (Auto) 2000 (1208-2816) /uL [place] # (Auto) 600 (0-900) /uL Eos # (Auto) 100 (0-450) /uL Baso # (Auto) 0 (0-100) /uL Sodium 134 L (137-145) mmol/L Potassium 3.3 L (3.4-5.1) mmol/L Chloride 103 (98-107) mmol/L Carbon Dioxide 23 (22-32) mmol/L BUN 10 (7-17) mg/dL Creatinine 0.55 (0.52-1.04) mg/dL Estimated GFR > 60 (>60) mL/min BUN/Creatinine Ratio 18.2 (6-22) Glucose 90 (70-100) mg/dL Calcium 8.8 (8.4-10.2) mg/dL HCG, Quant 14713 mIU/mL Point of Care Testing Test Results Positive Urine Dip Bedside Urine Glucose Negative Bedside Urine Bilirubin - Negative Bedside Urine Ketone - Negative Urine Specific [place] 1.030 Bedside Urine Occult Blood - Negative Bedside Urine pH 6.0 Bedside Urine Protein - Negative Bedside Urine Urobilinogen - Negative Bedside Urine Nitrite - Negative Bedside Urine Leukocytes - Negative Esterase Point of care testing: Point of Care Testing Test Results Positive Urine Dip Bedside Urine Glucose Negative Bedside Urine Bilirubin - Negative Bedside Urine Ketone - Negative Urine Specific [place] 1.030 Bedside Urine Occult Blood - Negative Bedside Urine pH 6.0 Bedside Urine Protein - Negative Bedside Urine Urobilinogen - Negative Bedside Urine Nitrite - Negative Bedside Urine Leukocytes - Negative Esterase MDM Narrative Medical decision making narrative: Patient's exam today is benign. There is no indication of any trauma. She does have cervical tenderness however no adnexal tenderness. Patient states she is no concern about sexually transmitted infections. Ultrasound does show a 6 weeks EGA intrauterine without signs of ectopic nor ovarian torsion nor ectopic . There was no bleeding. Patient has unremarkable vital signs. Unremarkable labs. She was informed of the . We discussed the ultrasound results. She is an appointment with her OB provider in 2 hours that was already scheduled prior to this morning's events. Will have her keep this appointment so that she can discuss options with regard to the . She was given return precautions and follow-up instructions. She expressed understanding and agreement. 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 You can discuss with them options that you have with regard to this . You can take Tylenol for any discomfort. Return to the emergency department for worsening symptoms. Prescriptions: No Action albuterol sulfate [ProAir HFA] 90 mcg/actuation HFA aerosol inhaler 2 puff inhalation Q6H PRN (Reason: shortness of breath or wheezing) Qty: 18 1RF sertraline 50 mg tablet See Rx Instructions .ROUTE .COMPLEX Qty: 90 3RF Hold Instructions: nauseated due to Dose Instruction: TAKE ONE TABLET BY MOUTH ONE TIME DAILY Rx Instructions: TAKE ONE TABLET BY MOUTH ONE TIME DAILY oxycodone 5 mg tablet 5 mg PO Q4H PRN (Reason: pain) Qty: 10 0RF Referrals: Santiago Melendez MD [Primary Care Provider] - Stand Alone Forms: Patient Portal/API
[2022-07-20 06:46] LABS: Add Manual Diff / Slide Review NO; Basophils Absolute Auto 0 /uL (0-100); Basophils Percent Auto 0.4 % (0-2); Eosinophils Absolute Auto 100 /uL (0-450); Eosinophils Percent Auto 1.4 % (2-4); Hematocrit 32.7 % (36-46); Hemoglobin 11.5 g/dL (12.0-16.0); Lymphocytes Absolute Auto 2000 /uL (1100-4500); Lymphocytes Percent Auto 23.9 % (25-40); Mean Corpuscular HGB Conc 35.2 % (30-36); Mean Corpuscular Hemoglobin 31.4 PG (26-34); Mean Corpuscular Volume 89.3 fL (80-100); Monocytes Absolute Auto 600 /uL (0-900); Monocytes Percent Auto 7.3 % (3-14); Neutrophils Absolute Auto 5600 /uL (1500-7000); Platelet Count 283 X10^3/uL (150-400); Red Blood Cell Count 3.66 X10^6/uL (4.0-5.2); Red Cell Distribution Width 12.9 % (11.6-14.8); White Blood Cell Count 8.4 X10^3/uL (4.5-11.0)
[2022-07-20 06:49] LABS: BUN Creatinine Ratio 18.2 (6-22); Blood Urea Nitrogen 10 mg/dL (7-17); Calcium 8.8 mg/dL (8.4-10.2); Carbon Dioxide 23 mmol/L (22-32); Chloride 103 mmol/L (98-107); Estimated Glomerular Filt Rate > 60 mL/min (>60); Glucose 90 mg/dL (70-100); HEMOLYSIS < 15 (0-50); Potassium 3.3 mmol/L (3.4-5.1); Sodium 134 mmol/L (137-145)
[2022-07-20 07:07] LABS: HCG Quantitative /Beta subunit 26127 mIU/mL
[2022-07-20 07:25] VITALS: BP 99/57; PULSE 81; RESP 18; O2SAT 97
== END 2022-07-20 07:26 | disposition home or self-care (01) ==
PROVIDERS: Emergency Provider Emergency Medicine; Family Provider Family Medicine; PCP Family Medicine
DX: R10.9 Unspecified abdominal pain (principal); Z33.1 Pregnant state, incidental
CPT/HCPCS: 36415; 76801; 76817; 80048; 81003; 81025; 84702; 85025; 99282; 99284

== ENCOUNTER 2022-08-27 18:37 | Emergency (ER) | payer OTHER, MEDICAID, SELFPAY ==
[2022-08-27 18:45] VITALS: BP 113/65; PULSE 91; RESP 16; TEMP 36.4; O2SAT 100; BMI 23.8
--- NOTE | 2022-08-27 19:45 | ED_ITS ---
HPI - Dental/Oral <Rhoda Hartley PA-C - Last Filed: 08/27/22 20:10> General Chief complaint: Dental/Oral Stated complaint: mouth pain after tooth chipped Time Seen by Provider: 08/27/22 19:33 Mode of arrival: Family Vehicle History of Present Illness HPI Narrative: Patient is a 21-year-old female presenting for evaluation of probable cracked lower right molar. She notes that she was eating gushers when she felt pain in her lower right molar. Had 1st, she says she thought she bit a hard gush her some how, but under flexion, she thinks that the gastric cut the site of the bracket which popped it off and took off part of her tooth with it. She says that she treated with Tylenol and ibuprofen at 1:00 p.m.. She says that she just moved here, has run out of bracket wax to help blunt the edge of her bracket which is poking into her cheek. She says she notified the emergency line for her flight engineer instructor, but has not heard back yet. She denies any sign of infection as this just occurred. She says that her right lower molar feels very painful. Related Data Previous Rx's Medication Instructions Recorded albuterol sulfate 90 mcg/actuation 2 puff inhalation Q6H PRN 07/27/21 aerosol inhaler (ProAir HFA) shortness of breath or wheezing #18 grams sertraline 50 mg tablet See Rx Instructions .Route 07/27/21 .COMPLEX #90 tabs naproxen 250 mg tablet 500 mg PO Q12H PRN pain 5 days #10 08/27/22 tabs Allergies Allergy/AdvReac Type Severity Reaction Status Date / Time No Known Drug Allergies Allergy Verified 08/27/22 18:47 Review of Systems <Rhoda Hartley PA-C - Last Filed: 08/27/22 20:10> Review of Systems Narrative: Per HPI Patient History <Rhoda Hartley PA-C - Last Filed: 08/27/22 20:10> Medical History Acute bronchitis Allergies Anxiety Asthma GERD (gastroesophageal reflux disease) Headache History of seasonal allergies Surgical History Anesthesia Status post tonsillectomy and adenoidectomy Family History Father Mental health problem Mother Mental health problem Social History marital status: unmarried,living together number of children: 1 household members: significant other and children (Has Earl' child with them periodically) lives independently: Yes housing: house ([facility]) pets and animals: Yes (dog, cat, aware of toxoplasmosis) education level: other (dropped out) occupational status: employed current occupational exposures/hazards: No special jonna needs: No seatbelt use: always water heater temp set < 120 deg: Yes working smoke detector in home: Yes fire extinguisher in home: Yes carbon monox detector in home: Yes firearms in home: No do you feel safe at home: Yes Smoking Status: Never smoker second hand exposure: No alcohol intake: former substance use type: does not use during the past year weight has: other (fluctuates by 10 pounds all the time) well-balanced diet: about half the time daily servings fruits/ve-4 caffeine: Yes (200mg a day) Type(s) of exercise: walking Smoking Status: Never smoker tobacco type: vaping alcohol intake frequency: holidays/special occasions only Substance Use Type: does not use Exam <Rhoda Hartley PA-C - Last Filed: 08/27/22 20:10> Narrative Exam Narrative: GENERAL: 21 year old patient appears stated age. Well-developed patient, in mild distress. Speaking clearly and interacting normally. HEAD: Atraumatic. Normocephalic. EYES: Pupils equal round No scleral icterus. No injection or drainage. Mouth: No surrounding gum swelling or redness, no bleeding noted in mouth. Right lower molar appears to have lateral half of it missing. Bracket appears partially disengaged and poking her right cheek causing an abrasion. Airway patent. NEURO: AOx3. Initial Vital Signs Initial Vital Signs: Vital Signs Temperature 97.6 F 08/27/22 18:45 Pulse Rate 91 H 08/27/22 18:45 Respiratory Rate 16 08/27/22 18:45 Blood Pressure 113/65 08/27/22 18:45 Pulse Oximetry 100 08/27/22 18:45 Oxygen Delivery Method Room Air 08/27/22 18:45 <Niki Harrison MD - Last Filed: 08/28/22 05:40> Initial Vital Signs Initial Vital Signs: Vital Signs Temperature 97.6 F 08/27/22 18:45 Pulse Rate 91 H 08/27/22 18:45 Respiratory Rate 16 08/27/22 18:45 Blood Pressure 113/65 08/27/22 18:45 Pulse Oximetry 100 08/27/22 18:45 Oxygen Delivery Method Room Air 08/27/22 18:45 Course <Rhoda Hartley PA-C - Last Filed: 08/27/22 20:10> Orders Ordered: Discontinued Medications Ketorolac Tromethamine (Ketorolac 30 Mg/Ml Vial) 30 mg IM NOW ONE Stop: 08/27/22 19:59 Last Admin: 08/27/22 20:04 Dose: 30 mg Documented By: HALLE Vital Signs Vital signs: Vital Signs - 8 hr 08/27/22 18:45 Temperature 97.6 F Pulse Rate 91 H Respiratory Rate 16 Blood Pressure 113/65 Pulse Oximetry 100 Oxygen Delivery Method Room Air <Niki Harrison MD - Last Filed: 08/28/22 05:40> Orders Ordered: Discontinued Medications Ketorolac Tromethamine (Ketorolac 30 Mg/Ml Vial) 30 mg IM NOW ONE Stop: 08/27/22 19:59 Last Admin: 08/27/22 20:04 Dose: 30 mg Documented By: HALLE Vital Signs Vital signs: Vital Signs - 8 hr 08/27/22 18:45 Temperature 97.6 F Pulse Rate 91 H Respiratory Rate 16 Blood Pressure 113/65 Pulse Oximetry 100 Oxygen Delivery Method Room Air MDM - Dental/Oral <Rhoda Hartley PA-C - Last Filed: 08/27/22 20:10> MDM Narrative Medical decision making narrative: CC: 21-year-old patient presenting for evaluation of a right lower molar which may be cracked today. She reports that she was chewing on a gush her and felt the site of her bracket pop-off and noticed part of her tooth came with it. She reports she took Tylenol and ibuprofen at 1:00 p.m. this afternoon. She reports significant pain in her right lower molar. She is tried to get in touch with her flight engineer instructor, without success. Complicating co-morbidities: Corroborating data: Data collected from: patient, Social determinants of health that may influence the patients condition: No noted Medical records reviewed: Differential considered: Trauma to jaw which seems unlikely given mechanism of injury and visual inspection shows a right lower molar missing part of its side. Exam documented above, pertinent findings include: Right lower molar missing its lateral side, no gum edema or exudate Treatments: Treated with 30 mg Toradol today. Prescription sent for naproxen to start taking tomorrow. Discussion: Discussed with patient that for full treatment, she needs to follow up with her flight engineer instructor. In this clinical setting, we can treat her pain and assess for underlying cellulitis. No evidence of oral cellulitis noted. She pereira s been given a menthol based salve for topical use for her pain in addition to Toradol injection for pain and a prescription for naproxen to take over the next week. We did discuss not to take ibuprofen on top of naproxen. She may use Tylenol for breakthrough pain. I also recommend she apply wax 2 blunts the edge of her bracket so it does not cause abrasion on her right cheek. Disposition: see below, along with detailed discharge instructions that have been reviewed with patient as well as indications for ED re-evaluation and additional outpatient follow up Discharge Plan Departure Patient Disposition: Home Clinical Impression: Dental trauma Instructions: DI for Dental Pain Activity Restrictions/Additional Instructions: You have been seen in the emergency department today for evaluation of pain from a cracked tooth. You have been given a 30mg Toradol shot to help with your pain in addition to an [id number] menthol salve to help topically with your pain. I recommend that you follow up with your flight engineer instructor as soon as possible for evaluation of your cracked tooth. You may cover the end of the bracket with some wax to help reduce the likelihood of it hurting your cheek. We discussed signs and symptoms of infection which may necessitate further evaluation by a azam ewing including swelling of your cheek or gum, or presence of pus or erythema. Prescriptions: New naproxen 250 mg tablet 500 mg PO Q12H PRN (Reason: pain) 5 Days Qty: 10 0RF Rx Instructions: Take 1-2 tabs twice a day as needed for pain No Action albuterol sulfate [ProAir HFA] 90 mcg/actuation HFA aerosol inhaler 2 puff inhalation Q6H PRN (Reason: shortness of breath or wheezing) Qty: 18 1RF sertraline 50 mg tablet See Rx Instructions .ROUTE .COMPLEX Qty: 90 3RF Hold Instructions: nauseated due to Dose Instruction: TAKE ONE TABLET BY MOUTH ONE TIME DAILY Rx Instructions: TAKE ONE TABLET BY MOUTH ONE TIME DAILY Referrals: Santiago Melendez MD [Primary Care Provider] - Stand Alone Forms: Patient Portal/API <Niki Harrison MD - Last Filed: 08/28/22 05:40> [facility] I was immediately available in the department for consultation throughout this patient's visit. Niki Harrison MD
[2022-08-27 20:02] VITALS: BP 102/56; PULSE 75; O2SAT 98
[2022-08-27] MEDS: KETOROLAC 30 MG/ML VIAL IM (20:04)
== END 2022-08-27 20:09 | disposition home or self-care (01) ==
PROVIDERS: Emergency Provider Physician Assistant; Family Provider Family Medicine; PCP Family Medicine
DX: K03.81 Cracked tooth (principal)
CPT/HCPCS: 96372; 99283; J1885

== ENCOUNTER 2022-09-05 19:39 | Emergency (ER) | payer OTHER, MEDICAID, SELFPAY ==
[2022-09-05 19:40] VITALS: BP 117/55; PULSE 90; RESP 18; TEMP 36.5; O2SAT 99
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
[2022-09-05 20:26] LABS: Pregnancy Test Serum,Qual Positive (Negative)
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
[2022-09-05 21:22] LABS: Blood Urea Nitrogen 5 mg/dL (7-17); Calcium 9.1 mg/dL (8.4-10.2); Carbon Dioxide 21 mmol/L (22-32); Chloride 111 mmol/L (98-107); Estimated Glomerular Filt Rate > 60 mL/min (>60); Glucose 104 mg/dL (70-100); HEMOLYSIS < 15 (0-50); Potassium 3.4 mmol/L (3.4-5.1); Sodium 145 mmol/L (137-145)
[2022-09-05 21:26] LABS: Add Manual Diff / Slide Review NO; Basophils Absolute Auto 0 /uL (0-100); Basophils Percent Auto 0.3 % (0-2); Eosinophils Absolute Auto 0 /uL (0-450); Eosinophils Percent Auto 0.1 % (2-4); Hematocrit 33.9 % (36-46); Hemoglobin 11.8 g/dL (12.0-16.0); Lymphocytes Absolute Auto 1300 /uL (1100-4500); Lymphocytes Percent Auto 13.4 % (25-40); Mean Corpuscular HGB Conc 34.7 % (30-36); Mean Corpuscular Hemoglobin 32.4 PG (26-34); Mean Corpuscular Volume 93.3 fL (80-100); Monocytes Absolute Auto 300 /uL (0-900); Monocytes Percent Auto 3.5 % (3-14); Neutrophils Absolute Auto 8000 /uL (1500-7000); Neutrophils Percent Auto 82.7 % (50-75); Platelet Count 288 X10^3/uL (150-400); Red Blood Cell Count 3.63 X10^6/uL (4.0-5.2); Red Cell Distribution Width 13.2 % (11.6-14.8); White Blood Cell Count 9.7 X10^3/uL (4.5-11.0)
[2022-09-05 21:32] LABS: Ethanol (ETOH) 310 mg/dL
--- NOTE | 2022-09-05 21:34 | DI.US.S_ITS ---
PROCEDURE: US OB <= 14 WEEKS FETUS INDICATIONS: MEDICAL CLEARANCE OUTSIDE/PRIOR DATING DATA: Last menstrual period (LMP): 06/29/2022. LMP-based estimated date of delivery (EMILY): 04/05/2023. First dating scan (date and location): 07/20/2022. Estimated date of delivery (EMILY) from first dating scan: 03/15/2023. TECHNIQUE: Real-time scanning was performed of the fetus, with image documentation and biometric measurements. COMPARISON: [facility], OB <= 14 WEEKS FETUS, 07/20/2022, 6:35. FINDINGS: General: A single living intrauterine gestation is present. Placenta: Placental position is posterior, without previa. heart rate: 158 beats per minute. Maternal cervical canal: Not well seen. biometrics: Biparietal diameter: 2.3 cm, 13 weeks 6 days Head circumference: 9.0 cm, 14 weeks 0 days Abdominal circumference: 7.1 cm, 13 weeks 5 days Femur length: 1.1 cm 13 weeks 1 day Composite gestational age from present scan: 13 weeks 5 days IMPRESSION: 1. Single living intrauterine with composite gestational age of 13 weeks 5 days. We strive to produce accurate, complete, and clear reports of imaging services. To assist us in improving patient care, this report was composed using standard report templates and voice recognition software. Therefore, it may contain abnormal punctuation, insertions and/or omissions. Occasional wrong-word or sound-alike substitutions may occur. Though we review the report and make efforts to correct it, we do recommend that the report be read carefully in proper context to recognize any text inaccuracies. Dictated by: Luisito Higuera M.D. on 09/05/2022 at 22:46 Approved by: Luisito Higuera M.D. on 09/05/2022 at 22:50
[2022-09-05 22:04] LABS: HCG Quantitative /Beta subunit 45541 mIU/mL
[2022-09-05 23:15] VITALS: BP 121/70; PULSE 84; RESP 18; O2SAT 98
== END 2022-09-05 23:18 | disposition home or self-care (01) ==
PROVIDERS: Emergency Provider Emergency Medicine; Family Provider Family Medicine; PCP Family Medicine
DX: S90.812A Abrasion, left foot, initial encounter (principal); Z33.1 Pregnant state, incidental; F10.129 Alcohol abuse with intoxication, unspecified; Y90.8 Blood alcohol level of 240 mg/100 ml or more; Z3A.13 13 weeks gestation of pregnancy
CPT/HCPCS: 36415; 76801; 80048; 80320; 84702; 84703; 85025; 99283; 99284

== ENCOUNTER 2022-09-26 16:55 | Emergency (ER) | payer OTHER, MEDICAID, SELFPAY ==
[2022-09-26 17:14] VITALS: BP 131/65; PULSE 66; RESP 18; TEMP 36.6; O2SAT 99; BMI 22.8
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
[2022-09-26] MEDS: ONDANSETRON 4 MG/2 ML INJ IV (17:31)
[2022-09-26 17:46] LABS: Add Manual Diff / Slide Review NO; Basophils Absolute Auto 0 /uL (0-100); Basophils Percent Auto 0.4 % (0-2); Eosinophils Absolute Auto 100 /uL (0-450); Eosinophils Percent Auto 1.2 % (2-4); Hematocrit 27.3 % (36-46); Hemoglobin 9.6 g/dL (12.0-16.0); Lymphocytes Absolute Auto 2100 /uL (1100-4500); Lymphocytes Percent Auto 28.3 % (25-40); Mean Corpuscular Hemoglobin 32.5 PG (26-34); Mean Corpuscular Volume 92.7 fL (80-100); Monocytes Absolute Auto 400 /uL (0-900); Monocytes Percent Auto 5.4 % (3-14); Neutrophils Absolute Auto 4800 /uL (1500-7000); Neutrophils Percent Auto 64.7 % (50-75); Platelet Count 264 X10^3/uL (150-400); Red Blood Cell Count 2.94 X10^6/uL (4.0-5.2); Red Cell Distribution Width 13.1 % (11.6-14.8); White Blood Cell Count 7.4 X10^3/uL (4.5-11.0)
[2022-09-26 17:55] LABS: Appearance Urine UA CLOUDY; Bilirubin Urine UA NEGATIVE (NEGATIVE); Color Urine UA RED; Glucose Urine UA NEGATIVE (Negative); Ketones Urine UA NEGATIVE (NEGATIVE); Leukocyte Esterase Urine UA TRACE (NEGATIVE); Nitrite Urine UA NEGATIVE (Negative); Occult Blood Urine UA 3+ (Negative); Protein Urine UA NEGATIVE (Negative); Specific Gravity Urine UA <=1.005 (1.000-1.035); Urobilinogen Urine UA 0.2 E.U./dL (0.2)
[2022-09-26 18:04] LABS: Alanine Aminotransferase 18 IU/L (<35); Albumin 4.2 g/dL (3.5-5.0); Albumin Globulin Ratio 1.3 (1.0-2.8); Alkaline Phosphatase 71 U/L (38-126); Aspartate Aminotransferase 19 IU/L (14-36); Bilirubin Total 0.2 mg/dL (0.2-1.3); Blood Urea Nitrogen 9 mg/dL (7-17); Calcium 9.3 mg/dL (8.4-10.2); Carbon Dioxide 26 mmol/L (22-32); Chloride 103 mmol/L (98-107); Estimated Glomerular Filt Rate > 60 mL/min (>60); Globulin 3.2 g/dL (1.7-4.1); Glucose 87 mg/dL (70-100); HEMOLYSIS < 15 (0-50); Potassium 3.5 mmol/L (3.4-5.1); Sodium 139 mmol/L (137-145); Total Protein 7.4 g/dL (6.3-8.2)
[2022-09-26 18:06] LABS: Bacteria Urine None Seen; Culture Indicated Urine Cult Not Indicated; RBC Urine 10-30/HPF (0-5/HPF); WBC Urine 0-1/HPF (0-5/HPF)
[2022-09-26 18:20] LABS: HCG Quantitative /Beta subunit 442.9 mIU/mL
--- NOTE | 2022-09-26 18:41 | ED_ITS ---
HPI - General Adult General Chief complaint: Vaginal Bleeding Stated complaint: Miscarry Time Seen by Provider: 09/26/22 18:30 Source: patient and family Mode of arrival: Ambulatory History of Present Illness HPI narrative: Patient is a 21-year-old female. who is here for evaluation of bleeding since yesterday. She states she is also cramping. She did pass quite a bit of clots over this period of time. She found out she was earlier this year. She stated that she had a medical elective several months ago. She did follow-up afterwards but it was several weeks/around or later. She found out that she was still . has been uncomplicated since then. All of her symptoms started yesterday. No fevers. Related Data Previous Rx's Medication Instructions Recorded albuterol sulfate 90 mcg/actuation 2 puff inhalation Q6H PRN 07/27/21 aerosol inhaler (ProAir HFA) shortness of breath or wheezing #18 grams sertraline 50 mg tablet See Rx Instructions .Route 07/27/21 .COMPLEX #90 tabs vit no.95-ferrous 1 tab PO DAILY #30 tabs 09/05/22 fumarate 28 mg-folic acid 800 mcg tablet () hydrocodone 5 mg-acetaminophen 325 1 tab PO Q6H PRN pain #7 tabs 09/26/22 mg tablet Allergies Allergy/AdvReac Type Severity Reaction Status Date / Time No Known Drug Allergies Allergy Verified 09/26/22 17:18 Review of Systems Constitutional Constitutional: Reports system reviewed and no additional complaints, except as documented Gastrointestinal Gastrointestinal: Reports system reviewed and no additional complaints, except as documented Genitourinary Genitourinary: Reports system reviewed and no additional complaints, except as documented Integumentary/Breasts Skin/Breast: Reports system reviewed and no additional complaints, except as documented Hematologic/Lymphatic On Anticoagulants: No Patient History Medical History Acute bronchitis Allergies Anxiety Asthma GERD (gastroesophageal reflux disease) Headache History of seasonal allergies Surgical History Anesthesia Status post tonsillectomy and adenoidectomy Family History Father Mental health problem Mother Mental health problem Social History marital status: unmarried,living together number of children: 1 household members: significant other and children (Has Earl' child with them periodically) lives independently: Yes housing: house ([facility]) pets and animals: Yes (dog, cat, aware of toxoplasmosis) education level: other (dropped out) occupational status: employed current occupational exposures/hazards: No special jonna needs: No seatbelt use: always water heater temp set < 120 deg: Yes working smoke detector in home: Yes fire extinguisher in home: Yes carbon monox detector in home: Yes firearms in home: No do you feel safe at home: Yes Smoking Status: Never smoker second hand exposure: No alcohol intake: former substance use type: does not use during the past year weight has: other (fluctuates by 10 pounds all the time) well-balanced diet: about half the time daily servings fruits/ve-4 caffeine: Yes (200mg a day) Type(s) of exercise: walking Smoking Status: Never smoker tobacco type: vaping alcohol intake frequency: holidays/special occasions only Substance Use Type: does not use Exam Initial Vital Signs Initial Vital Signs: Vital Signs Temperature 98 F 09/26/22 17:14 Pulse Rate 66 09/26/22 17:14 Respiratory Rate 18 09/26/22 17:14 Blood Pressure 131/65 09/26/22 17:14 Pulse Oximetry 99 09/26/22 17:14 Oxygen Delivery Method Room Air 09/26/22 17:14 Const General: cooperative, comfortable and No ill appearing [facility] Head: normal to inspection and normocephalic Resp Effort & Inspection: normal respiratory effort Cardio Rate: regular rate GI Inspection: non-distended Skin General: no rashes or lesions noted Neuro General: patient alert, patient awake and moves all extremities Course Orders Ordered: ED Orders 09/26/22 17:18 US pelvic complete Stat 09/26/22 17:38 Complete Blood Count AUTO DIFF Stat Comprehensive Metabolic Panel Stat HCG Quantitative /Beta subunit Stat Type and Screen Stat 09/26/22 17:40 Urinalysis and Microscopic Stat Discontinued Medications Hydrocodone Bitart/Acetaminophen (Hydrocodone/Acet 5/325 Tablet) 1 tab PO NOW ONE Stop: 09/26/22 18:42 Last Admin: 09/26/22 18:48 Dose: 1 tab Documented By: AT Ondansetron HCl (Ondansetron 4 Mg/2 Ml Inj) 4 mg IV NOW ONE Stop: 09/26/22 17:30 Last Admin: 09/26/22 17:31 Dose: 4 mg Documented By: AMU Vital Signs Vital signs: Vital Signs - 8 hr 09/26/22 17:14 09/26/22 18:51 Temperature 98 F Pulse Rate 66 78 Respiratory Rate 18 18 Blood Pressure 131/65 128/67 Pulse Oximetry 99 99 Oxygen Delivery Method Room Air Room Air Medical Decision Making Medical Records Medical records reviewed: Yes I reviewed the patient's medical records. Lab Data Lab results reviewed: Yes I reviewed the patient's lab results. 09/26/22 17:38 09/26/22 17:38 Labs: Lab Results 09/26/22 09/26/22 09/26/22 Range/Units 17:38 17:38 17:38 WBC 7.4 (4.5-11.0) X10^3/uL RBC 2.94 L (4.0-5.2) X10^6/uL Hgb 9.6 L (12.0-16.0) g/dL Hct 27.3 L (36-46) % MCV 92.7 (80-100) fL MCH 32.5 (26-34) PG MCHC 35.0 (30-36) % RDW 13.1 (11.6-14.8) % Plt Count 264 (150-400) X10^3/uL Neut % (Auto) 64.7 (50-75) % Lymph % (Auto) 28.3 (25-40) % [place] % (Auto) 5.4 (3-14) % Eos % (Auto) 1.2 L (2-4) % Baso % (Auto) 0.4 (0-2) % Neut # (Auto) 4800 (7670-7588) /uL Lymph # (Auto) 2100 (9353-2099) /uL [place] # (Auto) 400 (0-900) /uL Eos # (Auto) 100 (0-450) /uL Baso # (Auto) 0 (0-100) /uL Sodium 139 (137-145) mmol/L Potassium 3.5 (3.4-5.1) mmol/L Chloride 103 (98-107) mmol/L Carbon Dioxide 26 (22-32) mmol/L BUN 9 (7-17) mg/dL Creatinine 0.53 (0.52-1.04) mg/dL Estimated GFR > 60 (>60) mL/min BUN/Creatinine Ratio 17.0 (6-22) Glucose 87 (70-100) mg/dL Calcium 9.3 (8.4-10.2) mg/dL Total Bilirubin 0.2 (0.2-1.3) mg/dL AST 19 (14-36) IU/L ALT 18 (<35) IU/L Alkaline Phosphatase 71 (38-126) U/L Total Protein 7.4 (6.3-8.2) g/dL Albumin 4.2 (3.5-5.0) g/dL Globulin 3.2 (1.7-4.1) g/dL Albumin/Globulin Ratio 1.3 (1.0-2.8) HCG, Quant 442.9 mIU/mL Urine Color Urine Appearance Urine pH (4.5-8.0) Ur Specific [place] (1.000-1.035) Urine Protein (Negative) Urine Glucose (UA) (Negative) g/dL Urine Ketones (NEGATIVE) Urine Occult Blood (Negative) Urine Nitrate (Negative) Urine Bilirubin (NEGATIVE) Urine Urobilinogen (0.2) E.U./dL Ur Leukocyte Esterase (NEGATIVE) Urine RBC (0-5/HPF) Urine WBC (0-5/HPF) Urine Bacteria (None) Ur Culture Indicated? Blood Type O Positive Antibody Screen Negative 09/26/22 Range/Units 17:40 WBC (4.5-11.0) X10^3/uL RBC (4.0-5.2) X10^6/uL Hgb (12.0-16.0) g/dL Hct (36-46) % MCV (80-100) fL MCH (26-34) PG MCHC (30-36) % RDW (11.6-14.8) % Plt Count (150-400) X10^3/uL Neut % (Auto) (50-75) % Lymph % (Auto) (25-40) % [place] % (Auto) (3-14) % Eos % (Auto) (2-4) % Baso % (Auto) (0-2) % Neut # (Auto) (6547-9497) /uL Lymph # (Auto) (9877-8258) /uL [place] # (Auto) (0-900) /uL Eos # (Auto) (0-450) /uL Baso # (Auto) (0-100) /uL Sodium (137-145) mmol/L Potassium (3.4-5.1) mmol/L Chloride (98-107) mmol/L Carbon Dioxide (22-32) mmol/L BUN (7-17) mg/dL Creatinine (0.52-1.04) mg/dL Estimated GFR (>60) mL/min BUN/Creatinine Ratio (6-22) Glucose (70-100) mg/dL Calcium (8.4-10.2) mg/dL Total Bilirubin (0.2-1.3) mg/dL AST (14-36) IU/L ALT (<35) IU/L Alkaline Phosphatase (38-126) U/L Total Protein (6.3-8.2) g/dL Albumin (3.5-5.0) g/dL Globulin (1.7-4.1) g/dL Albumin/Globulin Ratio (1.0-2.8) HCG, Quant mIU/mL Urine Color Red Urine Appearance Cloudy Urine pH 7.0 (4.5-8.0) Ur Specific [place] <=1.005 (1.000-1.035) Urine Protein Negative (Negative) Urine Glucose (UA) Negative (Negative) g/dL Urine Ketones Negative (NEGATIVE) Urine Occult Blood 3+ H (Negative) Urine Nitrate Negative (Negative) Urine Bilirubin Negative (NEGATIVE) Urine Urobilinogen 0.2 (0.2) E.U./dL Ur Leukocyte Esterase Trace H (NEGATIVE) Urine RBC 10-30/hpf H (0-5/HPF) Urine WBC 0-1/hpf (0-5/HPF) Urine Bacteria None seen (None) Ur Culture Indicated? Cult not indicated Blood Type Antibody Screen Imaging Data US - OB: Radiologist's Impression: PROCEDURE:? US PELVIC COMPLETE ? INDICATIONS:? BLEEDING. HISTORY OF MISCARRIAGE. ? TECHNIQUE:? Real-time scanning was performed of the pelvic organs, with image documentation.? Additional endovaginal scanning was necessary due to incomplete visualization of the adnexal and endometrial structures by transabdominal scanning.? ? COMPARISON:? [facility], , US OB <= 14 WEEKS FETUS, 09/05/2022, 21:38. ? FINDINGS:? ?? Uterus:? Uterus is anteverted and enlarged in size at 11.7 x 9.0 x 8.0 cm. The myometrium is homogeneous. ? The endometrium measures 64.7 mm combined thickness.? The endometrium is heterogeneous with areas cystic and solid-appearing components.? There is questionable areas of increased vascularity although not definitively present. ? Ovaries:? The right ovary is not well seen.. The left ovary measures 2.7 x 2.9 x 0 point cm, with a calculated ovarian volume of 3.7 cc. ? Other:? No pathologic free abdominal or pelvic fluid. ? ? IMPRESSION:? ? Thickened endometrium with areas complex echogenicity.? Overall appearance is suggestive of retained products of conception although definitive areas of increased vascularity are difficult to identified.? Recommend clinical correlation and short interval imaging follow-up as indicated. ? We strive to produce accurate, complete, and clear reports of imaging services. To assist us in improving patient care, this report was composed using standard report templates and voice recognition software. Therefore, it may contain abnormal punctuation, insertions and/or omissions. Occasional wrong-word or sound-alike substitutions may occur. Though we review the report and make efforts to correct it, we do recommend that the report be read carefully in proper context to recognize any text inaccuracies. MDM Narrative Medical decision making narrative: Patient's history and physical today is consistent with an incomplete miscarriage. She is Rh positive. Ultrasound shows potential retained products of conception however the patient's symptoms all started yesterday and she is still bleeding and I suspect that she will continue to bleed over the next day or so. I did discuss this with her. Plan will be is to discharge patient home. She understand that she could continue to bleed over the next hours to days. 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 She was given specific return precautions. She expressed understanding and agreement with plan. Discharge Plan Departure Patient Disposition: Home Clinical Impression: Incomplete miscarriage Instructions: DI for Miscarriage Activity Restrictions/Additional Instructions: The ultrasound today does show that there is possibly still some retained products. I suspect that you are going to continue to bleed for the next day or so. I recommend that you contact your OB doctor's office tomorrow to let them know of today's events and to schedule follow-up. Return to the emergency department for fevers, continued bleeding, pain that is not controlled with medicines or any other new or worsening symptoms. Prescriptions: New hydrocodone-acetaminophen 5-325 mg tablet 1 tab PO Q6H PRN (Reason: pain) Qty: 7 0RF No Action albuterol sulfate [ProAir HFA] 90 mcg/actuation HFA aerosol inhaler 2 puff inhalation Q6H PRN (Reason: shortness of breath or wheezing) Qty: 18 1RF sertraline 50 mg tablet See Rx Instructions .ROUTE .COMPLEX Qty: 90 3RF Hold Instructions: nauseated due to Dose Instruction: TAKE ONE TABLET BY MOUTH ONE TIME DAILY Rx Instructions: TAKE ONE TABLET BY MOUTH ONE TIME DAILY PNV cmb#95-ferrous fumarate-FA [] 28 mg iron- 800 mcg tablet 1 tab PO DAILY Qty: 30 0RF Referrals: Santiago Melendez MD [Primary Care Provider] - Stand Alone Forms: Patient Portal/API
[2022-09-26] MEDS: HYDROCODONE/ACET 5/325 TABLET 1 TAB PO (18:48)
[2022-09-26 18:51] VITALS: BP 128/67; PULSE 78; RESP 18; O2SAT 99
== END 2022-09-26 18:58 | disposition home or self-care (01) ==
PROVIDERS: Emergency Medicine; Emergency Provider Emergency Medicine; Family Provider Family Medicine; PCP Family Medicine
DX: O03.4 Incomplete spontaneous abortion without complication (principal)
CPT/HCPCS: 36415; 76856; 80053; 81001; 84702; 85025; 86850; 86900; 86901; 96374; 99284; J2405

== ENCOUNTER → 2022-10-14 09:29 | Outpatient (CLI) | payer OTHER, MEDICAID, SELFPAY ==
[2022-10-14 10:11] LABS: Add Manual Diff / Slide Review NO; Basophils Absolute Auto 0 /uL (0-100); Basophils Percent Auto 0.8 % (0-2); Eosinophils Absolute Auto 200 /uL (0-450); Eosinophils Percent Auto 4.3 % (2-4); Hemoglobin 13.1 g/dL (12.0-16.0); Lymphocytes Absolute Auto 1600 /uL (1100-4500); Lymphocytes Percent Auto 35.2 % (25-40); Mean Corpuscular HGB Conc 34.5 % (30-36); Mean Corpuscular Hemoglobin 31.9 PG (26-34); Mean Corpuscular Volume 92.4 fL (80-100); Monocytes Absolute Auto 300 /uL (0-900); Monocytes Percent Auto 5.8 % (3-14); Neutrophils Absolute Auto 2500 /uL (1500-7000); Neutrophils Percent Auto 53.9 % (50-75); Platelet Count 311 X10^3/uL (150-400); Red Blood Cell Count 4.11 X10^6/uL (4.0-5.2); Red Cell Distribution Width 12.8 % (11.6-14.8); White Blood Cell Count 4.6 X10^3/uL (4.5-11.0)
[2022-10-14 10:46] LABS: HEMOLYSIS < 15 (0-50); Iron 50 ug/dL (37-170)
[2022-10-14 10:56] LABS: Percent Iron Saturation 11 % (15-50); Total Iron Binding Capacity 459 ug/dL (265-497); Transferrin 368 mg/dL (206-381)
[2022-10-14 11:28] LABS: Ferritin 12 ng/mL (6-137)
== END ==
PROVIDERS: Family Provider Family Medicine; PCP Family Medicine; Referring Provider Family Medicine; Visit Provider Family Medicine
DX: D64.9 Anemia, unspecified (principal); F41.9 Anxiety disorder, unspecified; O02.1 Missed abortion
CPT/HCPCS: 36415; 82728; 83540; 83550; 85025

== ENCOUNTER 2022-10-29 20:50 | Emergency (ER) | payer OTHER, MEDICAID, SELFPAY ==
[2022-10-29 20:56] VITALS: BP 111/77; PULSE 124; RESP 18; TEMP 36.6; O2SAT 99; BMI 19.2
[2022-10-29 21:22] LABS: UR Morphine/Opiate cutoff 300 Negative (Negative); Ur Creatinine Normal (Normal); Ur Specific Gravity Normal (Normal); Urine Amphetamines Negative (Negative); Urine Barbiturates Negative (Negative); Urine Cocaine Negative (Negative); Urine MDMA Negative (Negative); Urine Methamphetamines Negative (Negative); Urine Phencyclidine Negative (Negative); Urine Tetrahydrocannabinol Positive (Negative); Urine pH Normal (Normal)
[2022-10-29 21:23] LABS: Urine Benzodiazepines Positive (Negative); Urine Methadone Negative (Negative); Urine Oxycodone Negative (Negative); Urine Tricyclic Antidepressant Negative (Negative)
[2022-10-29 21:29] LABS: Prothrombin Time 11.6 SECONDS (10.1-12.7)
[2022-10-29 21:30] LABS: Add Manual Diff / Slide Review NO; Basophils Absolute Auto 0 /uL (0-100); Basophils Percent Auto 0.5 % (0-2); Eosinophils Absolute Auto 0 /uL (0-450); Eosinophils Percent Auto 0.8 % (2-4); Hematocrit 37.1 % (36-46); Hemoglobin 12.6 g/dL (12.0-16.0); Lymphocytes Absolute Auto 3000 /uL (1100-4500); Lymphocytes Percent Auto 47.8 % (25-40); Mean Corpuscular Volume 90.9 fL (80-100); Monocytes Absolute Auto 300 /uL (0-900); Monocytes Percent Auto 4.5 % (3-14); Neutrophils Absolute Auto 2900 /uL (1500-7000); Neutrophils Percent Auto 46.4 % (50-75); Platelet Count 282 X10^3/uL (150-400); Red Blood Cell Count 4.08 X10^6/uL (4.0-5.2); Red Cell Distribution Width 12.5 % (11.6-14.8); White Blood Cell Count 6.4 X10^3/uL (4.5-11.0)
[2022-10-29 21:32] LABS: PTT Partial Thromboplastin Tim 32 SECONDS (26-36)
[2022-10-29 21:34] LABS: Alanine Aminotransferase 21 IU/L (<35); Albumin 5.3 g/dL (3.5-5.0); Albumin Globulin Ratio 1.6 (1.0-2.8); Alkaline Phosphatase 66 U/L (38-126); Aspartate Aminotransferase 26 IU/L (14-36); BUN Creatinine Ratio 11.3 (6-22); Bilirubin Total 0.4 mg/dL (0.2-1.3); Blood Urea Nitrogen 9 mg/dL (7-17); Calcium 9.7 mg/dL (8.4-10.2); Carbon Dioxide 26 mmol/L (22-32); Chloride 107 mmol/L (98-107); Creatine Kinase 75 U/L (30-135); Estimated Glomerular Filt Rate > 60 mL/min (>60); Globulin 3.4 g/dL (1.7-4.1); Glucose 102 mg/dL (70-100); HEMOLYSIS 20 (0-50); Lipase 72 U/L (23-300); Magnesium 2.2 mg/dL (1.6-2.3); Potassium 3.1 mmol/L (3.4-5.1); Sodium 145 mmol/L (137-145); Total Protein 8.7 g/dL (6.3-8.2)
--- NOTE | 2022-10-29 21:41 | ED_ITS ---
HPI - General Adult General Chief complaint: Syncope Stated complaint: Panic attack, LOC, speech/walking issues Time Seen by Provider: 10/29/22 21:28 Source: patient, family () and other (Co-worker) Mode of arrival: Ambulatory History of Present Illness HPI narrative: Patient is a 21-year-old female who was brought to the emergency department by her boss for evaluation of what was mostly described as a panic attack. She does have a history of anxiety. She stated that for an unknown reason she became very anxious. She did take 2 of her 0.5 mg Ativan without any improvement of the symptoms. Patient is here with a co-worker who states there may have been some issues with confusion throughout the shift. Patient does state that there has been an increase in her Zoloft recently. No signs of trauma. Patient's then came to the emergency department. He states that the patient has been having quite a bit issues with alcohol use. He states that he can almost guarantee that she is intoxicated. She recently has had some legal issues with a DUI. Related Data Previous Rx's Medication Instructions Recorded albuterol sulfate 90 mcg/actuation 2 puff inhalation Q6H PRN 07/27/21 aerosol inhaler (ProAir HFA) shortness of breath or wheezing #18 grams vit no.95-ferrous 1 tab PO DAILY #30 tabs 09/05/22 fumarate 28 mg-folic acid 800 mcg tablet () lorazepam 0.5 mg tablet 0.5 mg PO QD-BID PRN anxiety #20 10/27/22 tabs sertraline 50 mg tablet See Rx Instructions .Route 10/27/22 .COMPLEX #90 tabs Allergies Allergy/AdvReac Type Severity Reaction Status Date / Time No Known Drug Allergies Allergy Verified 10/14/22 09:04 Review of Systems Constitutional Constitutional: Reports system reviewed and no additional complaints, except as documented Integumentary/Breasts Skin/Breast: Reports system reviewed and no additional complaints, except as d ocumented Psychiatric Psychiatric: Reports system reviewed and no additional complaints, except as documented Patient History Medical History Acute bronchitis Allergies Anxiety Asthma GERD (gastroesophageal reflux disease) Headache History of seasonal allergies Surgical History Anesthesia Status post tonsillectomy and adenoidectomy Family History Father Mental health problem Mother Mental health problem Social History marital status: unmarried,living together number of children: 1 household members: significant other and children (Has Earl' child with them periodically) lives independently: Yes housing: house ([facility]) pets and animals: Yes (dog, cat, aware of toxoplasmosis) education level: other (dropped out) occupational status: employed current occupational exposures/hazards: No special jonna needs: No seatbelt use: always water heater temp set < 120 deg: Yes working smoke detector in home: Yes fire extinguisher in home: Yes carbon monox detector in home: Yes firearms in home: No do you feel safe at home: Yes Smoking Status: Current every day smoker second hand exposure: No alcohol intake: former substance use type: does not use during the past year weight has: other (fluctuates by 10 pounds all the time) well-balanced diet: about half the time daily servings fruits/ve-4 caffeine: Yes (200mg a day) Type(s) of exercise: walking Smoking Status: Current every day smoker tobacco type: vaping alcohol intake frequency: holidays/special occasions only Substance Use Type: does not use Exam Initial Vital Signs Initial Vital Signs: Vital Signs Temperature 97.9 F 10/29/22 20:56 Pulse Rate 124 H 10/29/22 20:56 Respiratory Rate 18 10/29/22 20:56 Blood Pressure 111/77 10/29/22 20:56 Pulse Oximetry 99 10/29/22 20:56 Oxygen Delivery Method Room Air 10/29/22 20:56 HENMT Head: normal to inspection and normocephalic Resp Effort & Inspection: normal respiratory effort Cardio Rate: regular rate Skin General: no rashes or lesions noted Psych Other: Patient is crying. Is extremely anxious. Is able to speak in full sentences. Denies SI. Course Orders Ordered: ED Orders 10/29/22 21:15 Complete Blood Count AUTO DIFF Stat Comprehensive Metabolic Panel Stat Ethanol (ETOH) Stat Lipase Stat Magnesium Stat PTT Partial Thromboplastin [place] Stat Prothrombin Time INR Stat Troponin & CK Cardiac Panel Stat urine tox [Urine Drug Screen, Rapid] Stat Discontinued Medications Lorazepam (Lorazepam 0.5 Mg Tablet) 1 mg PO NOW ONE Stop: 10/29/22 21:43 Last Admin: 10/29/22 21:58 Dose: 1 mg Documented By: JUANA Vital Signs Vital signs: Vital Signs - 8 hr 10/29/22 20:56 Temperature 97.9 F Pulse Rate 124 H Respiratory Rate 18 Blood Pressure 111/77 Pulse Oximetry 99 Oxygen Delivery Method Room Air Medical Decision Making Lab Data Lab results reviewed: Yes I reviewed the patient's lab results. 10/29/22 21:15 10/29/22 21:15 Labs: Lab Results 10/29/22 10/29/22 10/29/22 Range/Units 21:15 21:15 21:15 WBC 6.4 (4.5-11.0) X10^3/uL RBC 4.08 (4.0-5.2) X10^6/uL Hgb 12.6 (12.0-16.0) g/dL Hct 37.1 (36-46) % MCV 90.9 (80-100) fL MCH 31.0 (26-34) PG MCHC 34.0 (30-36) % RDW 12.5 (11.6-14.8) % Plt Count 282 (150-400) X10^3/uL Neut % (Auto) 46.4 L (50-75) % Lymph % (Auto) 47.8 H (25-40) % [place] % (Auto) 4.5 (3-14) % Eos % (Auto) 0.8 L (2-4) % Baso % (Auto) 0.5 (0-2) % Neut # (Auto) 2900 (1368-0135) /uL Lymph # (Auto) 3000 (6142-1176) /uL [place] # (Auto) 300 (0-900) /uL Eos # (Auto) 0 (0-450) /uL Baso # (Auto) 0 (0-100) /uL PT 11.6 (10.1-12.7) SECONDS INR 1.0 (0.9-1.3) APTT 32 (26-36) SECONDS Sodium 145 (137-145) mmol/L Potassium 3.1 L (3.4-5.1) mmol/L Chloride 107 (98-107) mmol/L Carbon Dioxide 26 (22-32) mmol/L BUN 9 (7-17) mg/dL Creatinine 0.80 (0.52-1.04) mg/dL Estimated GFR > 60 (>60) mL/min BUN/Creatinine Ratio 11.3 (6-22) Glucose 102 H (70-100) mg/dL Calcium 9.7 (8.4-10.2) mg/dL Magnesium 2.2 (1.6-2.3) mg/dL Total Bilirubin 0.4 (0.2-1.3) mg/dL AST 26 (14-36) IU/L ALT 21 (<35) IU/L Alkaline Phosphatase 66 (38-126) U/L Total Creatine Kinase 75 (30-135) U/L CK-MB (CK-2) TNP CK-MB (CK-2) Rel Index TNP Troponin I < 0.012 (0.01-0.034) ng/mL Total Protein 8.7 H (6.3-8.2) g/dL Albumin 5.3 H (3.5-5.0) g/dL Globulin 3.4 (1.7-4.1) g/dL Albumin/Globulin Ratio 1.6 (1.0-2.8) Lipase 72 (23-300) U/L U Opiates 300ng/mL cut (Negative) Ur Oxycodone Screen (Negative) Urine Methadone Screen (Negative) Ur Barbiturates Screen (Negative) U Tricyclic Antidepress (Negative) Ur Phencyclidine Scrn (Negative) Ur Amphetamines Screen (Negative) U Methamphetamines Scrn (Negative) Ur MDMA Scrn (Ecstasy) (Negative) U Benzodiazepines Scrn (Negative) Urine Cocaine Screen (Negative) U Marijuana (THC) Screen (Negative) Ethyl Alcohol ( - 10) mg/dL 10/29/22 10/29/22 Range/Units 21:15 21:15 WBC (4.5-11.0) X10^3/uL RBC (4.0-5.2) X10^6/uL Hgb (12.0-16.0) g/dL Hct (36-46) % MCV (80-100) fL MCH (26-34) PG MCHC (30-36) % RDW (11.6-14.8) % Plt Count (150-400) X10^3/uL Neut % (Auto) (50-75) % Lymph % (Auto) (25-40) % [place] % (Auto) (3-14) % Eos % (Auto) (2-4) % Baso % (Auto) (0-2) % Neut # (Auto) (7350-5458) /uL Lymph # (Auto) (6058-0537) /uL [place] # (Auto) (0-900) /uL Eos # (Auto) (0-450) /uL Baso # (Auto) (0-100) /uL PT (10.1-12.7) SECONDS INR (0.9-1.3) APTT (26-36) SECONDS Sodium (137-145) mmol/L Potassium (3.4-5.1) mmol/L Chloride (98-107) mmol/L Carbon Dioxide (22-32) mmol/L BUN (7-17) mg/dL Creatinine (0.52-1.04) mg/dL Estimated GFR (>60) mL/min BUN/Creatinine Ratio (6-22) Glucose (70-100) mg/dL Calcium (8.4-10.2) mg/dL Magnesium (1.6-2.3) mg/dL Total Bilirubin (0.2-1.3) mg/dL AST (14-36) IU/L ALT (<35) IU/L Alkaline Phosphatase (38-126) U/L Total Creatine Kinase (30-135) U/L CK-MB (CK-2) CK-MB (CK-2) Rel Index Troponin I (0.01-0.034) ng/mL Total Protein (6.3-8.2) g/dL Albumin (3.5-5.0) g/dL Globulin (1.7-4.1) g/dL Albumin/Globulin Ratio (1.0-2.8) Lipase (23-300) U/L U Opiates 300ng/mL cut Negative (Negative) Ur Oxycodone Screen Negative (Negative) Urine Methadone Screen Negative (Negative) Ur Barbiturates Screen Negative (Negative) U Tricyclic Antidepress Negative (Negative) Ur Phencyclidine Scrn Negative (Negative) Ur Amphetamines Screen Negative (Negative) U Methamphetamines Scrn Negative (Negative) Ur MDMA Scrn (Ecstasy) Negative (Negative) U Benzodiazepines Scrn Positive H (Negative) Urine Cocaine Screen Negative (Negative) U Marijuana (THC) Screen Positive H (Negative) Ethyl Alcohol 316 H ( - 10) mg/dL Point of Care Testing Test Results Negative Urine Dip Bedside Urine Glucose Negative Bedside Urine Bilirubin - Negative Bedside Urine Ketone - Negative Urine Specific [place] 1.000 Bedside Urine Occult Blood - Negative Bedside Urine pH 6.5 Bedside Urine Protein - Negative Bedside Urine Urobilinogen - Negative Bedside Urine Nitrite - Negative Bedside Urine Leukocytes - Negative Esterase Point of care testing: Point of Care Testing Test Results Negative Urine Dip Bedside Urine Glucose Negative Bedside Urine Bilirubin - Negative Bedside Urine Ketone - Negative Urine Specific [place] 1.000 Bedside Urine Occult Blood - Negative Bedside Urine pH 6.5 Bedside Urine Protein - Negative Bedside Urine Urobilinogen - Negative Bedside Urine Nitrite - Negative Bedside Urine Leukocytes - Negative Esterase MDM Narrative Medical decision making narrative: Initially evaluated the patient and she did agree to take more Ativan. She also agreed to have blood drawn. Her arrived in the emergency department and gave information regarding her alcohol use. Prior to her labs resulting the patient eloped from the emergency department. Labs then resulted showing significantly elevated alcohol level. Patient was ambulatory and steady on her feet upon arrival. Discharge Plan Departure Patient Disposition: Left Against Medical Advice Clinical Impression: Anxiety, Alcohol intoxication Prescriptions: No Action lorazepam 0.5 mg tablet 0.5 mg PO QD-BID PRN (Reason: anxiety) Qty: 20 1RF sertraline 50 mg tablet See Rx Instructions .ROUTE .COMPLEX Qty: 90 3RF Hold Instructions: nauseated due to Dose Instruction: TAKE ONE TABLET BY MOUTH ONE TIME DAILY Rx Instructions: TAKE TWO TABLET BY MOUTH ONE TIME DAILY albuterol sulfate [ProAir HFA] 90 mcg/actuation HFA aerosol inhaler 2 puff inhalation Q6H PRN (Reason: shortness of breath or wheezing) Qty: 18 1RF PNV cmb#95-ferrous fumarate-FA [] 28 mg iron- 800 mcg tablet 1 tab PO DAILY Qty: 30 0RF Stand Alone Forms: Against Medical Advice
[2022-10-29 21:45] LABS: Troponin I < 0.012 ng/mL (0.01-0.034)
[2022-10-29] MEDS: LORazepam 0.5 MG TABLET 1 MG PO (21:58)
[2022-10-29 21:59] LABS: Ethanol (ETOH) 316 mg/dL
[2022-10-29 22:04] VITALS: BP 129/90; PULSE 130; RESP 18; O2SAT 100
--- NOTE | 2022-10-29 22:24 | PC.NURSE ---
Patient upset and crying and walked out of the ER, staff brought her back as she still had the IV in her arm. Patients here and states he cannot take her home like this. This promotion writer removed her IV and again, crying and crying patient walked out of the hospital again.
== END 2022-10-29 22:30 | disposition left against medical advice (07) ==
PROVIDERS: Emergency Provider Emergency Medicine; Family Provider Family Medicine; PCP Family Medicine
DX: F10.129 Alcohol abuse with intoxication, unspecified (principal); F41.9 Anxiety disorder, unspecified; Y90.8 Blood alcohol level of 240 mg/100 ml or more; Z53.29 Procedure and treatment not carried out because of patient's decision for other reasons
CPT/HCPCS: 36415; 80053; 80305; 80320; 81003; 81025; 82550; 83690; 83735; 84484; 85025; 85610; 85730; 93005; 93010; 99283; 99284

== ENCOUNTER 2023-03-03 21:33 | Emergency (ER) | payer OTHER, MEDICAID, SELFPAY ==
--- NOTE | 2023-03-03 21:33 | DI.RAD.S_ITS ---
PROCEDURE: XR SHOULDER RT MIN 2V INDICATIONS: fall with shoulder pain TECHNIQUE: 2 views of the shoulder were acquired. COMPARISON: None. FINDINGS: Bones: No fractures or dislocations. No suspicious bony lesions. Visualized ribs appear intact. Soft tissues: No suspicious soft tissue calcifications. IMPRESSION: 1. No fracture or dislocation. Dictated by: Luisito Higuera M.D. on 03/03/2023 at 22:12 Approved by: Luisito Higuera M.D. on 03/03/2023 at 22:25
[2023-03-03 21:35] VITALS: BP 113/73; PULSE 117; RESP 20; TEMP 36.7; O2SAT 97; BMI 19.2
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
[2023-03-03] MEDS: ACETAMINOPHEN 325 MG TABLET 975 MG PO (21:46)
== END 2023-03-03 22:03 | disposition home or self-care (01) ==
LOC: ED 21:47
PROVIDERS: Emergency Provider Emergency Medicine; Family Provider Family Medicine
DX: M25.511 Pain in right shoulder (principal); Z00.8 Encounter for other general examination
CPT/HCPCS: 73030; 99283

== ENCOUNTER 2023-03-06 09:25 | Emergency (ER) | payer OTHER, MEDICAID, SELFPAY ==
[2023-03-06 09:34] VITALS: BP 126/76; PULSE 114; RESP 22; TEMP 36.8; O2SAT 99; BMI 19.2
--- NOTE | 2023-03-06 10:03 | DI.RAD.S_ITS ---
PROCEDURE: XR SHOULDER RT MIN 2V INDICATIONS: Recent dislocation with increasing pain TECHNIQUE: 3 views of the shoulder were acquired. COMPARISON: [facility], CR, XR SHOULDER RT MIN 2V, 03/03/2023, 21:31. FINDINGS: Bones: There is 1 cm superior subluxation of the distal clavicle at the AC joint, suspicious for AC separation. No fractures or dislocations. No suspicious bony lesions. Visualized ribs appear intact. Soft tissues: No suspicious soft tissue calcifications. IMPRESSION: 1. Suspect AC separation. If clinically indicated, consider weight bearing views of AC joints for further evaluation. 2. The glenohumeral joint appears anatomically aligned. In this patient with recent shoulder dislocation and persistent pain, labral injury cannot be excluded. Consider MRI for further evaluation. Dictated by: Willis Norwood M.D. on 03/06/2023 at 11:09 Approved by: Willis Norwood M.D. on 03/06/2023 at 11:16
--- NOTE | 2023-03-06 10:04 | ED.GENADULT ---
HPI - General Adult General Chief complaint: Extremity Injury, Upper Stated complaint: R/ Shoulder dislocated T-3, severe pain Time Seen by Provider: 03/06/23 09:26 Source: patient Mode of arrival: Ambulatory History of Present Illness HPI narrative: Patient is a 22-year-old female. She was seen here in the emergency department last week for a right shoulder dislocation and medical clearance for incarceration. The shoulder was relocated prior to arrival here in the ER. She stated that she did go to [facility] in his release the next morning. She does have a sling. She is having continued discomfort with tingling in her right hand. No new injuries. Related Data Previous Rx's Medication Instructions Recorded albuterol sulfate 90 mcg/actuation 2 puff inhalation Q6H PRN 07/27/21 aerosol inhaler (ProAir HFA) shortness of breath or wheezing #18 grams vit no.95-ferrous 1 tab PO DAILY #30 tabs 09/05/22 fumarate 28 mg-folic acid 800 mcg tablet () sertraline 50 mg tablet See Rx Instructions .Route 10/27/22 .COMPLEX #90 tabs lorazepam 0.5 mg tablet 0.5 mg PO QD-BID PRN anxiety #20 11/21/22 tabs hydrocodone 5 mg-acetaminophen 325 1 tab PO Q4-6H PRN pain #7 tabs 03/06/23 mg tablet Allergies Allergy/AdvReac Type Severity Reaction Status Date / Time No Known Drug Allergies Allergy Verified 10/14/22 09:04 Review of Systems Constitutional Constitutional: Reports system reviewed and no additional complaints, except as documented Musculoskeletal Musculoskeletal: Reports system reviewed and no additional complaints, except as documented Integumentary/Breasts Skin/Breast: Reports system reviewed and no additional complaints, except as documented Neurologic Neurologic: Reports system reviewed and no additional complaints, except as documented Hematologic/Lymphatic On Anticoagulants: No Patient History Medical History Acute bronchitis Allergies Anxiety Asthma GERD (gastroesophageal reflux disease) Headache History of seasonal allergies Surgical History Anesthesia Status post tonsillectomy and adenoidectomy Family History Father Mental health problem Mother Mental health problem Social History marital status: unmarried,living together number of children: 1 household members: significant other and children (Has Earl' child with them periodically) lives independently: Yes housing: house ([facility]) pets and animals: Yes (dog, cat, aware of toxoplasmosis) education level: other (dropped out) occupational status: employed current occupational exposures/hazards: No special jonna needs: No seatbelt use: always water heater temp set < 120 deg: Yes working smoke detector in home: Yes fire extinguisher in home: Yes carbon monox detector in home: Yes firearms in home: No do you feel safe at home: Yes Smoking Status: Current every day smoker second hand exposure: No alcohol intake: former substance use type: does not use during the past year weight has: other (fluctuates by 10 pounds all the time) well-balanced diet: about half the time daily servings fruits/ve-4 caffeine: Yes (200mg a day) Type(s) of exercise: walking Smoking Status: Current every day smoker tobacco type: vaping alcohol intake frequency: holidays/special occasions only Substance Use Type: does not use Exam Initial Vital Signs Initial Vital Signs: Vital Signs Temperature 98.2 F 03/06/23 09:34 Pulse Rate 114 H 03/06/23 09:34 Respiratory Rate 22 03/06/23 09:34 Blood Pressure 126/76 03/06/23 09:34 Pulse Oximetry 99 03/06/23 09:34 Oxygen Delivery Method Room Air 03/06/23 09:34 HENVT Head: normal to inspection and normocephalic Resp Effort & Inspection: normal respiratory effort Auscultation: clear to auscultation bilaterally Cardio Rate: regular rate Rhythm: regular rhythm Pulses: radial pulses present on the right Skin Other: Bruising on the superior and anterior portion of the right shoulder. Neuro Sensory Exam: no sensory deficits noted Extrem General: capillary refill normal Course Orders Ordered: ED Orders 03/06/23 10:03 XR shoulder RT min 2V Stat Discontinued Medications Morphine Sulfate (Morphine 4 Mg/Ml Inj) 4 mg IM NOW ONE Stop: 03/06/23 10:04 Last Admin: 03/06/23 10:07 Dose: 4 mg Vital Signs Vital signs: Vital Signs - 8 hr 03/06/23 09:34 03/06/23 10:13 Temperature 98.2 F Pulse Rate 114 H Pulse Rate [Right Radial] 98 H Respiratory Rate 22 Blood Pressure 126/76 Pulse Oximetry 99 Oxygen Delivery Method Room Air Medical Decision Making Imaging Data Extremity x-ray #1: My Impression: No fractures or dislocations potentially a shoulder separation MDM Narrative Medical decision making narrative: Patient is neurovascularly intact. No new injuries noted on the x-rays today. She potentially does have a shoulder separation. She has contacted Orthopedics this morning for follow-up. She has a sling already for comfort. Will provide pain medication. Discharge Plan Departure Patient Disposition: Home Clinical Impression: Acute shoulder pain Instructions: DI for Shoulder Pain Activity Restrictions/Additional Instructions: Use the pain medication as needed. The sling is for your comfort as well. You are going to need follow-up with Orthopedics and most likely with your primary doctor for physical therapy. Prescriptions: New hydrocodone-acetaminophen 5-325 mg tablet 1 tab PO Q4-6H PRN (Reason: pain) Qty: 7 0RF No Action sertraline 50 mg tablet See Rx Instructions .ROUTE .COMPLEX Qty: 90 3RF Hold Instructions: nauseated due to Dose Instruction: TAKE ONE TABLET BY MOUTH ONE TIME DAILY Rx Instructions: TAKE TWO TABLET BY MOUTH ONE TIME DAILY lorazepam 0.5 mg tablet 0.5 mg PO QD-BID PRN (Reason: anxiety) Qty: 20 1RF albuterol sulfate [ProAir HFA] 90 mcg/actuation HFA aerosol inhaler 2 puff inhalation Q6H PRN (Reason: shortness of breath or wheezing) Qty: 18 1RF PNV cmb#95-ferrous fumarate-FA [] 28 mg iron- 800 mcg tablet 1 tab PO DAILY Qty: 30 0RF Referrals: Santiago Melendez MD [Primary Care Provider] - Stand Alone Forms: Patient Portal/API
[2023-03-06] MEDS: MORPHINE 4 MG/ML INJ IM (10:07)
[2023-03-06 10:13] VITALS: PULSE 98
[2023-03-06 11:08] VITALS: BP 122/70; PULSE 88; RESP 16; O2SAT 99
== END 2023-03-06 11:11 | disposition home or self-care (01) ==
PROVIDERS: Emergency Provider Emergency Medicine; Family Provider Family Medicine; PCP Family Medicine
DX: M25.511 Pain in right shoulder (principal)
CPT/HCPCS: 73030; 96372; 99283; J2270

== ENCOUNTER 2023-09-06 11:15 | Outpatient (RCR) | payer OTHER, MEDICAID, SELFPAY ==
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
--- NOTE | 2023-09-13 15:01 | PT-OP ANOTE ---
pt called for follow up and MD office never called pt to get her in. Pt still in inc pain. She sees doctor tomorrow and will update PT after based on what is said.
--- NOTE | 2023-09-18 17:49 | PT-OP ANOTE ---
Called pt and based on MD monahan to hold PT ,cancel 09/19 and 09/24 appt. She saw her provider who said to hold PT until she sees ortho. She also has an order for MRI. She will update us once she knows more about when that appt is. I asked her to call no later than 09/24 to let us know about 09/26.
--- NOTE | 2023-10-16 12:27 | PT-OP ANOTE ---
pt called and message left re: no show and DC and cancel of last scheduled visit. DC d/t non compliance and still awaiting ortho approval to resume PT. asked pt to have new referral sent from ortho when cleared to resume.
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
== END 2023-10-16 14:47 | disposition home or self-care (01) ==
LOC: PHYS 11:15
PROVIDERS: Family Provider Family Medicine; PCP Family Medicine
DX: M25.511 Pain in right shoulder (principal); R53.1 Weakness; R29.3 Abnormal posture
CPT/HCPCS: 97110; 97140; 97162; 97535

== ENCOUNTER 2023-10-07 10:49 | Emergency (ER) | payer OTHER, MEDICAID, SELFPAY ==
[2023-10-07 10:56] VITALS: BP 127/72; PULSE 118; RESP 16; TEMP 36.5; O2SAT 99; BMI 21.9
[2023-10-07] MEDS: ACETAMINOPHEN 325 MG TABLET 975 MG PO (11:03)
[2023-10-07] MEDS: LIDOCAINE 1% (PF) 5 ML INJ (12:13)
--- NOTE | 2023-10-07 12:16 | ED.SKABFB ---
HPI - Skin/Abscess/Foreign Bdy <Peri Hartman PA-C - Last Filed: 10/07/23 13:11> General Chief complaint: Skin/Abscess/Foreign Body Stated complaint: needs stitches Time Seen by Provider: 10/07/23 11:13 Source: patient Mode of arrival: Ambulatory Limitations: no limitations History of Present Illness HPI narrative: 22-year-old female here for a laceration on her left hand which occurred yesterday around 5:00 p.m. 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 States she was shucking oysters and she just nicked her hand with the tip of the knife but there is a small piece of subcutaneous fat poking out and it is very sensitive and tender and she is unable to clean the area because it hurts too much. She had applied a bandage with Coban and otherwise no treatment has been done so far. She has no allergies or other concerns. Related Data Home Medications Medication Instructions Recorded Confirmed ibuprofen 600 mg tablet 600 mg PO Q6H PRN Pain (Scale 10/07/23 10/07/23 Score 7-10) oxycodone 5 mg tablet 5 mg PO Q6HR PRN Pain (Scale Score 10/07/23 10/07/23 7-10) Previous Rx's Medication Instructions Recorded albuterol sulfate 90 mcg/actuation 2 puff inhalation Q6H PRN 07/27/21 aerosol inhaler (ProAir HFA) shortness of breath or wheezing #18 grams vit no.95-ferrous 1 tab PO DAILY #30 tabs 09/05/22 fumarate 28 mg-folic acid 800 mcg tablet () sertraline 50 mg tablet See Rx Instructions .Route 10/27/22 .COMPLEX #90 tabs lorazepam 0.5 mg tablet 0.5 mg PO QD-BID PRN anxiety #20 11/21/22 tabs hydrocodone 5 mg-acetaminophen 325 1 tab PO Q4-6H PRN pain #7 tabs 03/06/23 mg tablet Allergies Allergy/AdvReac Type Severity Reaction Status Date / Time No Known Drug Allergies Allergy Verified 10/07/23 10:59 Review of Systems <Peri Hartman PA-C - Last Filed: 10/07/23 13:11> Review of Systems ROS Unobtainable: All systems reviewed & are unremarkable except as noted in HPI and below Patient History <Peri Hartman PA-C - Last Filed: 10/07/23 13:11> Medical History Acute bronchitis Allergies Anxiety Asthma GERD (gastroesophageal reflux disease) Headache History of seasonal allergies Surgical History Anesthesia Status post tonsillectomy and adenoidectomy Family History Father Mental health problem Mother Mental health problem Social History marital status: unmarried,living together number of children: 1 household members: significant other and children (Has Earl' child with them periodically) lives independently: Yes housing: house (formerly [facility]) pets and animals: Yes (dog, cat, aware of toxoplasmosis) education level: other (dropped out) occupational status: employed current occupational exposures/hazards: No special jonna needs: No seatbelt use: always water heater temp set < 120 deg: Yes working smoke detector in home: Yes fire extinguisher in home: Yes carbon monox detector in home: Yes firearms in home: No do you feel safe at home: Yes Smoking Status: Current every day smoker second hand exposure: No alcohol intake: former substance use type: does not use during the past year weight has: other (fluctuates by 10 pounds all the time) well-balanced diet: about half the time daily servings fruits/ve-4 caffeine: Yes (200mg a day) Type(s) of exercise: walking Smoking Status: Current every day smoker tobacco type: vaping alcohol intake frequency: holidays/special occasions only Substance Use Type: does not use Exam <Peri Hartman PA-C - Last Filed: 10/07/23 13:11> Narrative Exam Narrative: GENERAL: Well-developed, well-nourished, appears stated age. In no acute distress HEAD: Atraumatic. Normocephalic. EYES: Pupils equal round and reactive. Extraocular motions intact. No scleral icterus. No injection or drainage. ENT: Nose without bleeding, purulent drainage. Airway patent. NECK: Trachea midline. Non tender RESPIRATORY: Respiratory rate and effort normal EXTREMITIES: No edema or joint tenderness. NEURO: AOx3. SKIN: Very small 0.5 cm superficial linear laceration on the left thenar eminence with a small piece of subcutaneous fat poking out. Very tender to touch. No active bleeding. Initial Vital Signs Initial Vital Signs: Vital Signs Temperature 97.7 F 10/07/23 10:56 Pulse Rate 118 H 10/07/23 10:56 Respiratory Rate 16 10/07/23 10:56 Blood Pressure 127/72 10/07/23 10:56 Pulse Oximetry 99 10/07/23 10:56 Oxygen Delivery Method Room Air 10/07/23 10:56 <Manuela Valle DO - Last Filed: 10/08/23 07:28> Initial Vital Signs Initial Vital Signs: Vital Signs Temperature 97.7 F 10/07/23 10:56 Pulse Rate 118 H 10/07/23 10:56 Respiratory Rate 16 10/07/23 10:56 Blood Pressure 127/72 10/07/23 10:56 Pulse Oximetry 99 10/07/23 10:56 Oxygen Delivery Method Room Air 10/07/23 10:56 Procedures <Peri Hartman PA-C - Last Filed: 10/07/23 13:11> Laceration Repair Laceration 1: Time of procedure: 12:00 Site: hand (Left hand) Size (cm): 0.5 Description: linear Depth: simple, single layer (Subcutaneous fat poking out) Local Anesthetic: lidocaine 1% Amount of anesthesia used (mL): 1 Pre-repair: wound explored (Small piece of subQ fat trimmed off) Skin layer closed with: steri-strips Course <SILVANA Brian Last Filed: 10/07/23 13:11> Orders Ordered: Discontinued Medications Acetaminophen (Acetaminophen 325 Mg Tablet) 975 mg PO NOW ONE Stop: 10/07/23 11:01 Last Admin: 10/07/23 11:03 Dose: 975 mg Documented By: MARIELLA Lidocaine HCl (Lidocaine 1% (Pf) 5 Ml) 5 ml INJ NOW ONE Stop: 10/07/23 11:42 Last Admin: 10/07/23 12:13 Dose: 5 ml Documented By: BATSHEVA Vital Signs Vital signs: Vital Signs - 8 hr 10/07/23 10:56 10/07/23 12:45 Temperature 97.7 F Pulse Rate 118 H 78 Respiratory Rate 16 18 Blood Pressure 127/72 121/70 Pulse Oximetry 99 99 Oxygen Delivery Method Room Air Room Air <Manuela Valle DO - Last Filed: 10/08/23 07:28> Orders Ordered: Discontinued Medications Acetaminophen (Acetaminophen 325 Mg Tablet) 975 mg PO NOW ONE Stop: 10/07/23 11:01 Last Admin: 10/07/23 11:03 Dose: 975 mg Documented By: MARIELLA Lidocaine HCl (Lidocaine 1% (Pf) 5 Ml) 5 ml INJ NOW ONE Stop: 10/07/23 11:42 Last Admin: 10/07/23 12:13 Dose: 5 ml Documented By: BATSHEVA Vital Signs Vital signs: Vital Signs - 8 hr 10/07/23 10:56 10/07/23 12:45 Temperature 97.7 F Pulse Rate 118 H 78 Respiratory Rate 16 18 Blood Pressure 127/72 121/70 Pulse Oximetry 99 99 Oxygen Delivery Method Room Air Room Air MDM - Skin/Abscess/Foreign Bdy <Peri Hartman PA-C - Last Filed: 10/07/23 13:11> MDM Narrative Medical decision making narrative: Patient comes in with a very small laceration to the left hand that she sustained 18 hours prior to arrival. There is a small piece of subcutaneous fat protruding from the laceration but otherwise the laceration is small and simple with no active bleeding. Sutures not advised at this point due to length of time since injury and the small size and no active bleeding. Patient however complains of extreme sensitivity to the area and feels she is unable to clean it properly so I numbed it with lidocaine 1% and trimmed the protruding subcu fat and applied Steri-Strips for some protection and to alleviate the sensitivity she feels. We discussed wound care instructions and signs of infection and when to return to the ED. patient understands and agrees with plan. Discharge Plan Departure Patient Disposition: Home Clinical Impression: Laceration Instructions: DI for Laceration Repair-Skin Closure Strips Activity Restrictions/Additional Instructions: Thank you for choosing us to care for you today. You were seen for a laceration on her left hand. Due to it being a small wound and since about 18 hours have passed since the time of injury, stitches were not recommended. We did apply some skin closure strips to the area. Please wash gently over these twice daily with soap and water and pat dry and bandage as instructed. Please watch out for signs of infection including redness, swelling, pus or other discharge from the wound, increasing pain. If these occur please return or see your primary care provider for evaluation. Prescriptions: No Action sertraline 50 mg tablet See Rx Instructions .ROUTE .COMPLEX Qty: 90 3RF Hold Instructions: nauseated due to Dose Instruction: TAKE ONE TABLET BY MOUTH ONE TIME DAILY Rx Instructions: TAKE TWO TABLET BY MOUTH ONE TIME DAILY lorazepam 0.5 mg tablet 0.5 mg PO QD-BID PRN (Reason: anxiety) Qty: 20 1RF albuterol sulfate [ProAir HFA] 90 mcg/actuation HFA aerosol inhaler 2 puff inhalation Q6H PRN (Reason: shortness of breath or wheezing) Qty: 18 1RF hydrocodone-acetaminophen 5-325 mg tablet 1 tab PO Q4-6H PRN (Reason: pain) Qty: 7 0RF ibuprofen 600 mg tablet 600 mg PO Q6H PRN (Reason: Pain (Scale Score 7-10)) oxycodone 5 mg tablet 5 mg PO Q6HR PRN (Reason: Pain (Scale Score 7-10)) Rx Instructions: prescribed 09/27, 2 week suppy. PNV cmb#95-ferrous fumarate-FA [] 28 mg iron- 800 mcg tablet 1 tab PO DAILY Qty: 30 0RF Referrals: Santiago Melendez MD [Primary Care Provider] - Stand Alone Forms: Patient Portal/API ED Sign-out <Manuela Valle DO - Last Filed: 10/08/23 07:28> Cosign ED Attending Albaroature Attestation: I was available for consultation.
[2023-10-07 12:45] VITALS: BP 121/70; PULSE 78; RESP 18; O2SAT 99
== END 2023-10-07 12:46 | disposition home or self-care (01) ==
PROVIDERS: Emergency Provider Physician Assistant; Family Provider Family Medicine; PCP Family Medicine
DX: S61.412A Laceration without foreign body of left hand, initial encounter (principal); W26.0XXA Contact with knife, initial encounter
CPT/HCPCS: 99283

== ENCOUNTER 2024-04-11 17:22 | Emergency (ER) | payer OTHER, MEDICAID, SELFPAY ==
[2024-04-11 18:03] VITALS: BP 127/84; PULSE 126; RESP 18; TEMP 36.2; O2SAT 97; BMI 23.3
--- NOTE | 2024-04-11 18:11 | PC.NURSE ---
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
--- NOTE | 2024-04-11 18:27 | ED.NAVMDI ---
HPI - Nausea/Vomiting/Diarrhea General Chief complaint: Nausea/Vomiting/Diarrhea Stated complaint: ETOH Time Seen by Provider: 04/11/24 18:13 Source: patient Mode of arrival: Ambulatory Limitations: no limitations History of Present Illness HPI Narrative: Patient is a 23-year-old female who comes emergency department because of alcohol intoxication. Patient states that she was brought to the emergency department by her ?baby daddy? because she drank today. This is the 1st time that she was drank in several months. She states she drank because of stressors at home. States she was having to take care of herself and also her cousin and her cousin's kids. She drank this evening because she just became very stressed about her environment. Related Data Home Medications Medication Instructions Recorded Confirmed ibuprofen 600 mg tablet 600 mg PO Q6H PRN Pain (Scale 10/07/23 10/07/23 Score 7-10) oxycodone 5 mg tablet 5 mg PO Q6HR PRN Pain (Scale Score 10/07/23 10/07/23 7-10) Previous Rx's Medication Instructions Recorded albuterol sulfate 90 mcg/actuation 2 puff inhalation Q6H PRN 07/27/21 aerosol inhaler (ProAir HFA) shortness of breath or wheezing #18 grams vit no.95-ferrous 1 tab PO DAILY #30 tabs 09/05/22 fumarate 28 mg-folic acid 800 mcg tablet () sertraline 50 mg tablet See Rx Instructions .Route 10/27/22 .COMPLEX #90 tabs lorazepam 0.5 mg tablet 0.5 mg PO QD-BID PRN anxiety #20 11/21/22 tabs hydrocodone 5 mg-acetaminophen 325 1 tab PO Q4-6H PRN pain #7 tabs 03/06/23 mg tablet Allergies Allergy/AdvReac Type Severity Reaction Status Date / Time No Known Drug Allergies Allergy Verified 10/07/23 10:59 Review of Systems Neurologic Comments: Intoxicated Patient History Medical History Allergies Anxiety Acute bronchitis GERD (gastroesophageal reflux disease) Headache History of seasonal allergies Asthma Surgical History Anesthesia Status post tonsillectomy and adenoidectomy Family History Father Mental health problem Mother Mental health problem Social History marital status: unmarried,living together number of children: 1 household members: significant other and children (Has Earl' child with them periodically) lives independently: Yes housing: house ([facility]) pets and animals: Yes (dog, cat, aware of toxoplasmosis) education level: other (dropped out) occupational status: employed current occupational exposures/hazards: No special jonna needs: No seatbelt use: always water heater temp set < 120 deg: Yes working smoke detector in home: Yes fire extinguisher in home: Yes carbon monox detector in home: Yes firearms in home: No do you feel safe at home: Yes Smoking Status: Current every day smoker second hand exposure: No alcohol intake: former substance use type: does not use during the past year weight has: other (fluctuates by 10 pounds all the time) well-balanced diet: about half the time daily servings fruits/ve-4 caffeine: Yes (200mg a day) Type(s) of exercise: walking Smoking Status: Current every day smoker tobacco type: vaping alcohol intake frequency: holidays/special occasions only Alcohol type: hard liquor Substance Use Type: marijuana Exam Initial Vital Signs Initial Vital Signs: Vital Signs Temperature 97.2 F L 04/11/24 18:03 Pulse Rate 126 H 04/11/24 18:03 Respiratory Rate 18 04/11/24 18:03 Blood Pressure 127/84 04/11/24 18:03 Pulse Oximetry 97 04/11/24 18:03 Oxygen Delivery Method Room Air 04/11/24 18:03 Const General: cooperative and No ill appearing HENMT Head: normal to inspection and normocephalic Resp Effort & Inspection: normal respiratory effort Cardio Rate: regular rate Neuro General: patient alert, patient awake and moves all extremities Psych Other: Anxious and crying in room Course Orders Ordered: Discontinued Medications Ondansetron HCl (Ondansetron 4 Mg/2 Ml Inj) 4 mg IV NOW PRN PRN Reason: Nausea And Vomiting Ondansetron HCl (Ondansetron 4 Mg Odt) 4 mg SL NOW PRN PRN Reason: Nausea And Vomiting Vital Signs Vital signs: Vital Signs - 8 hr 04/11/24 19:07 Pulse Rate 105 H Respiratory Rate 18 Blood Pressure 118/72 Pulse Oximetry 98 Oxygen Delivery Method Room Air MDM - Nausea/Vomiting/Diarrhea MDM Narrative Medical decision making narrative: Patient is not interested in detox/rehab. She was not currently in alcohol withdrawal. Patient does have a ride home. States she would like to go home. Patient will be discharged. Patient was not suicidal. Not homicidal. Discharge Plan Departure Patient Disposition: Home Clinical Impression: Alcohol intoxication Instructions: DI for Alcohol Use Disorder Activity Restrictions/Additional Instructions: No driving for the next 24 hours or in the future if you drink alcohol. Continue to take all medications as directed. Return to the emergency department for new symptoms. Prescriptions: No Action sertraline 50 mg tablet See Rx Instructions .ROUTE .COMPLEX Qty: 90 3RF Hold Instructions: nauseated due to Dose Instruction: TAKE ONE TABLET BY MOUTH ONE TIME DAILY Rx Instructions: TAKE TWO TABLET BY MOUTH ONE TIME DAILY lorazepam 0.5 mg tablet 0.5 mg PO QD-BID PRN (Reason: anxiety) Qty: 20 1RF albuterol sulfate [ProAir HFA] 90 mcg/actuation HFA aerosol inhaler 2 puff inhalation Q6H PRN (Reason: shortness of breath or wheezing) Qty: 18 1RF hydrocodone-acetaminophen 5-325 mg tablet 1 tab PO Q4-6H PRN (Reason: pain) Qty: 7 0RF ibuprofen 600 mg tablet 600 mg PO Q6H PRN (Reason: Pain (Scale Score 7-10)) oxycodone 5 mg tablet 5 mg PO Q6HR PRN (Reason: Pain (Scale Score 7-10)) Rx Instructions: prescribed 09/27, 2 week suppy. PNV cmb#95-ferrous fumarate-FA [] 28 mg iron- 800 mcg tablet 1 tab PO DAILY Qty: 30 0RF Referrals: Santiago Melendez MD [Primary Care Provider] - Stand Alone Forms: Patient Portal/API/Survey
--- NOTE | 2024-04-11 18:45 | PC.NURSE ---
Pt laying in bed tearful. States she wants to leave because she feels like she is waisting out time. Pt denies SI/HI. Her friend Geo is on the way to the hospital and pt states she would be able to get a ride home with him. Geo presents to ED and appears as a responsible libertarian, alert and oriented, willing to give pt a ride home. Provider notified pt would like to discharge.
[2024-04-11 19:07] VITALS: BP 118/72; PULSE 105; RESP 18; O2SAT 98
== END 2024-04-11 19:10 | disposition home or self-care (01) ==
PROVIDERS: Emergency Provider Emergency Medicine; Family Provider Family Medicine; PCP Family Medicine
DX: F10.129 Alcohol abuse with intoxication, unspecified (principal)
CPT/HCPCS: 99281

== ENCOUNTER 2025-02-15 15:12 | Emergency (ER) | payer OTHER, SELFPAY ==
[2025-02-15 15:49] VITALS: BP 129/67; PULSE 87; RESP 18; TEMP 36.1; O2SAT 100; BMI 22.8
--- NOTE | 2025-02-15 15:52 | DI.US.S_ITS ---
PROCEDURE: US PELVIC COMPLETE INDICATIONS: POSITIVE TEST; HEAVY BLEEDING X 3 DAYS TECHNIQUE: Real-time scanning was performed of the pelvic organs, with image documentation. Additional endovaginal scanning was necessary due to incomplete visualization of the adnexal and endometrial structures by transabdominal scanning. COMPARISON: None. FINDINGS: Uterus: The uterus is of normal size and morphology. The endometrium is thickened and there is free fluid within the endometrial canal with a depth of 11 mm. Ovaries: The right ovary measures 2.8 x 1.9 x 2.9 cm, with a calculated ovarian volume of 8.0 cc. The left ovary measures 2.5 x 1.0 x 2.0 cm, with a calculated ovarian volume of 2.6 cc. The ovaries have a normal sonographic appearance. Less than 12 follicles can be seen in each ovary. No adnexal masses are seen. Other: No pathologic free abdominal or pelvic fluid. IMPRESSION: Findings consistent with failed . We strive to produce accurate, complete, and clear reports of imaging services. To assist us in improving patient care, this report was composed using standard report templates and voice recognition software. Therefore, it may contain abnormal punctuation, insertions and/or omissions. Occasional wrong-word or sound-alike substitutions may occur. Though we review the report and make efforts to correct it, we do recommend that the report be read carefully in proper context to recognize any text inaccuracies. Dictated by: Rhoda Miranda M.D. on 02/15/2025 at 15:56 Approved by: Rhoda Miranda M.D. on 02/15/2025 at 15:59
--- NOTE | 2025-02-15 15:59 | ED.FEMALEGU ---
HPI - Female Genitourinary General Chief complaint: Vaginal Bleeding Stated complaint: possible miscarriage Time Seen by Provider: 02/15/25 15:26 Source: patient Mode of arrival: Family Vehicle History of Present Illness HPI Narrative: 24-year-old history of 1 miscarriage presents with positive test last [id number] but started to have heavy menstrual bleeding for the past 2 days having soaked through 5-6 maxi pads. Her last menstrual period was December 25. Patient is a nonsmoker and is not on any control medicines at this time. She is also having abdominal cramping but no nausea vomiting diarrhea constipation rectal bleeding or UTI symptoms. Other than what is stated 14 point review of system is negative. Related Data Allergies Allergy/AdvReac Type Severity Reaction Status Date / Time No Known Drug Allergies Allergy Verified 02/15/25 15:49 Review of Systems Review of Systems ROS Unobtainable: All systems reviewed & are unremarkable except as noted in HPI and below Exam Narrative Exam Narrative: GENERAL: [24] year old patient appears stated age. Well-developed patient, in mild distress. HEAD: Atraumatic. Normocephalic. EYES: Pupils equal round and reactive. Extraocular motions intact. No scleral icterus. No injection or drainage. ENT: Nose without bleeding, purulent drainage. Throat without erythema, tonsillar hypertrophy or exudate. Airway patent. NECK: Trachea midline. Non tender CARDIOVASCULAR: Regular rate and rhythm without murmurs, gallops, or rubs. RESPIRATORY: Clear to auscultation. Breath sounds equal bilaterally. No wheezes, rales, or rhonchi. GASTROINTESTINAL: Abdomen soft, non-tender, nondistended. EXTREMITIES: No edema or joint tenderness. BACK: Nontender without deformity or crepitance. No flank tenderness. NEURO: AOx3. SKIN: No rash or erythema of visible areas Initial Vital Signs Initial Vital Signs: Vital Signs Temperature 97.0 F L 02/15/25 15:49 Pulse Rate 87 02/15/25 15:49 Respiratory Rate 18 02/15/25 15:49 Blood Pressure 129/67 02/15/25 15:49 Pulse Oximetry 100 02/15/25 15:49 Oxygen Delivery Method Room Air 02/15/25 15:49 Course Orders Ordered: ED Orders 02/15/25 15:52 US OB <= 14 weeks fetus Stat Complete Blood Count AUTO DIFF Stat Comprehensive Metabolic Panel Stat HCG Quantitative /Beta subunit Stat Type and Screen Stat Vital Signs Vital signs: Vital Signs - 8 hr 02/15/25 15:49 Temperature 97.0 F L Pulse Rate 87 Respiratory Rate 18 Blood Pressure 129/67 Pulse Oximetry 100 Oxygen Delivery Method Room Air MDM - Female Genitourinary Imaging Data 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 PROCEDURE: US PELVIC COMPLETE INDICATIONS: POSITIVE TEST; HEAVY BLEEDING X 3 DAYS TECHNIQUE: Real-time scanning was performed of the pelvic organs, with image documentation. Additional endovaginal scanning was necessary due to incomplete visualization of the adnexal and endometrial structures by transabdominal scanning. COMPARISON: None. FINDINGS: Uterus: The uterus is of normal size and morphology. The endometrium is thickened and there is free fluid within the endometrial canal with a depth of 11 mm. Ovaries: The right ovary measures 2.8 x 1.9 x 2.9 cm, with a calculated ovarian volume of 8.0 cc. The left ovary measures 2.5 x 1.0 x 2.0 cm, with a calculated ovarian volume of 2.6 cc. The ovaries have a normal sonographic appearance. Less than 12 follicles can be seen in each ovary. No adnexal masses are seen. Other: No pathologic free abdominal or pelvic fluid. IMPRESSION: Findings consistent with failed . We strive to produce accurate, complete, and clear reports of imaging services. To assist us in improving patient care, this report was composed using standard report templates and voice recognition software. Therefore, it may contain abnormal punctuation, insertions and/or omissions. Occasional wrong-word or sound-alike substitutions may occur. Though we review the report and make efforts to correct it, we do recommend that the report be read carefully in proper context to recognize any text inaccuracies. Dictated by: Rhoda Miranda M.D. on 02/15/2025 at 15:56 Approved by: Rhoda Miranda M.D. on 02/15/2025 at 15:59 MDM Narrative Medical decision making narrative: All lab work, vital signs, nurse triage note, medication list, previous ER visits, and all imaging studies reviewed. Ultrasound shows findings consistent with failed . WBC 6.3 hemoglobin 12.3 platelet 1320 CMP normal beta quant 4131 0.6 UA showed >100/hpf. Differential diagnosis includes threatened , . 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 She elected to proceed with expectant mgmt. Discharge Plan Departure Patient Disposition: Home Clinical Impression: Incomplete miscarriage Instructions: DI for Miscarriage Activity Restrictions/Additional Instructions: Return with new or worsening symptoms. Follow up with OBGYN Clinic call office on Monday for appointment for potential D&C. [phone] Stand Alone Forms: Patient Portal/API
[2025-02-15 16:17] LABS: Add Manual Diff / Slide Review NO; Hematocrit 34.8 % (36-46); Hemoglobin 12.3 g/dL (12.0-16.0); Lymphocytes Absolute Auto 1900 /uL (1100-4500); Mean Corpuscular HGB Conc 35.4 % (30-36); Mean Corpuscular Hemoglobin 32.5 PG (26-34); Mean Corpuscular Volume 91.7 fL (80-100); Platelet Count 321 X10^3/uL (150-400)
[2025-02-15 16:35] LABS: Alanine Aminotransferase 14 IU/L (<35); Albumin 4.8 g/dL (3.5-5.0); Albumin Globulin Ratio 1.5 (1.0-2.8); Alkaline Phosphatase 68 U/L (38-126); Blood Urea Nitrogen 10 mg/dL (7-17); Calcium 9.6 mg/dL (8.4-10.2); Carbon Dioxide 26 mmol/L (22-32); Chloride 102 mmol/L (98-107); Estimated Glomerular Filt Rate > 60 mL/min (>60); Globulin 3.1 g/dL (1.7-4.1); Glucose 85 mg/dL (70-99); HEMOLYSIS < 15 (0-50); Potassium 3.7 mmol/L (3.4-5.1); Sodium 137 mmol/L (137-145); Total Protein 7.9 g/dL (6.3-8.2)
[2025-02-15] MEDS: ACETAMINOPHEN 325 MG TABLET 975 MG PO (16:36)
[2025-02-15 16:52] LABS: HCG Quantitative /Beta subunit 4131.6 mIU/mL
[2025-02-15 17:02] LABS: Ictotest Urine Negative (Negative)
[2025-02-15 17:19] VITALS: PULSE 99; O2SAT 100
[2025-02-15 17:20] VITALS: BP 111/64; PULSE 98; O2SAT 100
[2025-02-15] MEDS: ONDANSETRON 4 MG/2 ML INJ IV (17:46)
[2025-02-15] MEDS: ONDANSETRON 4 MG ODT PREPACK 1 BOTTLE MISC (17:47)
== END 2025-02-15 18:01 | disposition home or self-care (01) ==
PROVIDERS: Emergency Provider Family Medicine
DX: O03.4 Incomplete spontaneous abortion without complication (principal)
CPT/HCPCS: 36415; 76830; 76856; 80053; 81003; 81015; 81025; 84702; 85025; 86850; 86900; 86901; 87086; 96374; 99284; J2405

== ENCOUNTER → 2025-02-19 11:54 | Outpatient (CLI) | payer OTHER, SELFPAY ==
[2025-02-19 12:59] LABS: HCG Quantitative /Beta subunit 621.43 mIU/mL
== END ==
PROVIDERS: Referring Provider Obstetrics & Gynecology; Visit Provider Obstetrics & Gynecology
DX: O03.4 Incomplete spontaneous abortion without complication (principal)
CPT/HCPCS: 36415; 84702

== ENCOUNTER → 2025-02-19 15:49 | Outpatient (CLI) | payer OTHER, SELFPAY ==
--- NOTE | 2025-02-19 15:49 | DI.US.S_ITS ---
PROCEDURE: US PELVIC COMPLETE INDICATIONS: Please evaluate for products of conception spont. TECHNIQUE: Real-time scanning was performed of the pelvic organs, with image documentation. Additional endovaginal scanning was necessary due to incomplete visualization of the adnexal and endometrial structures by transabdominal scanning. COMPARISON: [facility], US, US PELVIC COMPLETE, 02/15/2025, 16:16. [facility] Ultrasound, US, US PELVIC COMPLETE WITH TRANSVAGINAL, 11/13/2024, 14:36. [facility], US, US PELVIC COMPLETE, 09/26/2022, 17:39. FINDINGS: Uterus: Uterus is anteverted and normal in size at 7.5 x 4.5 x 3.9 cm. The myometrium is homogeneous. The endometrium measures 4-5 mm combined thickness. Along the inferior aspect of the endometrial stripe, there is a focus of mildly increased vascularity. Generalized increased vascularity can be seen within the surrounding myometrium. Ovaries: The right ovary measures 2.7 x 2.1 x 1.8 cm, with a calculated ovarian volume of 5.3 cc. The left ovary measures 2.7 x 2.1 x 1.1 cm, with a calculated ovarian volume of 3.3 cc. The ovaries have a normal sonographic appearance, with a likely corpus luteum seen on the left, measuring up to 1.4 cm. Less than 12 follicles can be seen in each ovary. No adnexal masses are seen. Other: No pathologic free abdominal or pelvic fluid. IMPRESSION: Area of mildly increased vascularity seen along the endometrial stripe, which may be related to retained products of conception. Close clinical followup, with serial beta-hCG and serial ultrasound are recommended, if clinically appropriate. We strive to produce accurate, complete, and clear reports of imaging services. To assist us in improving patient care, this report was composed using standard report templates and voice recognition software. Therefore, it may contain abnormal punctuation, insertions and/or omissions. Occasional wrong-word or sound-alike substitutions may occur. Though we review the report and make efforts to correct it, we do recommend that the report be read carefully in proper context to recognize any text inaccuracies. Dictated by: Rene Cintron M.D. on 02/19/2025 at 15:46 Approved by: Rene Cintron M.D. on 02/19/2025 at 15:49
== END ==
PROVIDERS: Referring Provider Obstetrics & Gynecology; Visit Provider Obstetrics & Gynecology
DX: N92.6 Irregular menstruation, unspecified (principal); O03.4 Incomplete spontaneous abortion without complication
CPT/HCPCS: 36415; 76830; 76856; 84702